=== PATIENT | male | born 1950 | race Caucasian/White ===

== ENCOUNTER 2020-02-22 08:42 | Outpatient (CLI) | payer MEDICARE, SELFPAY ==
[2020-02-22 09:43] LABS: Alanine Aminotransferase 25 U/L (4-50); Albumin Level 4.6 g/dL (3.5-5.1); Alkaline Phosphatase 82 U/L (38-126); Anion Gap 6 mmol/L (8-16); Aspartate Amino Transferase 29 U/L (17-59); Blood Urea Nitrogen 23 mg/dL (9-20); Calcium 9.1 mg/dL (8.4-10.2); Carbon Dioxide 28 mmol/L (22-30); Chloride 103 mmol/L (98-107); Cholesterol 150 mg/dL (0-200); Estimated Glomerular Filt Rate > 60; Glucose 103 mg/dL (75-110); HDL Direct 60 mg/dL; Potassium 3.8 mmol/L (3.4-5.0); Sodium 137 mmol/L (137-145); Triglycerides 43 mg/dL (<150)
[2020-02-22 09:53] LABS: LDL Cholesterol Direct 69 mg/dL
== END 2020-02-22 08:43 | disposition home or self-care (01) ==
PROVIDERS: PCP Emergency Medicine; Visit Provider Emergency Medicine
DX: E78.5 Hyperlipidemia, unspecified (principal)
CPT/HCPCS: 36415; 80053; 80061

== ENCOUNTER 2020-06-11 08:24 | Outpatient (CLI) | payer MEDICARE, SELFPAY ==
--- NOTE | ~2020-06-11 | CT_ITS ---
EXAMINATION: CT chest w con DATE: 06/11/2020 09:02 INDICATION: Ascending aortic aneurysm TECHNIQUE: Computed tomography (CT) of the chest was performed with 75 cc Omnipaque 350 intravenous c ontrast. The dose-length product was 187.14 mGy-cm. Automated exposure control and iterative reconstr uction technique were employed. COMPARISON: CT dated 06/27/2019 FINDINGS: Stable appearance to ascending aortic aneurysm measuring 4.2 cm at the sinus of Valsalva, a nd 4.7 cm and the mid ascending aorta. The aorta measures 3.1 cm in the mid descending thoracic aorta. There is minimal apical pleural thick ening/scarring. No endobronchial lesions. No suspicious pulmonary nodules. There is a left chest wall pacer with leads in the right atrium and right ventricle respectively. Moderate thoracic spondylosis . Mild chronic wedge shaped appearance to multiple mid thoracic vertebra. No acute osseous abnormalit y. No thoracic lymphadenopathy. IMPRESSION: 1. Stable ascending thoracic aortic aneurysm measuring 4.7 cm. Reviewed, dictated and finalized at location A. ER MANAGER
[2020-06-11 11:24] LABS: Estimated Glomerular Filt Rate > 60
== END 2020-06-11 08:25 | disposition home or self-care (01) ==
PROVIDERS: PCP Emergency Medicine; Visit Provider Internal Medicine Cardiovascular Disease
DX: I71.4 Abdominal aortic aneurysm, without rupture (principal); I71.1 Thoracic aortic aneurysm, ruptured; M47.814 Spondylosis without myelopathy or radiculopathy, thoracic region
CPT/HCPCS: 71260; Q9967

== ENCOUNTER 2020-08-28 08:36 | Outpatient (CLI) | payer MEDICARE, SELFPAY ==
[2020-08-28 09:02] LABS: Alanine Aminotransferase 29 U/L (4-50); Albumin Level 4.4 g/dL (3.5-5.1); Alkaline Phosphatase 69 U/L (38-126); Anion Gap 5 mmol/L (8-16); Aspartate Amino Transferase 33 U/L (17-59); Blood Urea Nitrogen 22 mg/dL (9-20); Calcium 9.4 mg/dL (8.4-10.2); Carbon Dioxide 31 mmol/L (22-30); Chloride 103 mmol/L (98-107); Cholesterol 149 mg/dL (0-200); Estimated Glomerular Filt Rate > 60; Glucose 96 mg/dL (75-110); HDL Direct 61 mg/dL; Sodium 139 mmol/L (137-145); Triglycerides 50 mg/dL (<150)
[2020-08-28 09:13] LABS: LDL Cholesterol Direct 69 mg/dL
[2020-08-28 09:33] LABS: Prostate Specific Antigen 0.5 ng/mL (< OR = 4.0)
== END 2020-08-28 08:37 | disposition home or self-care (01) ==
PROVIDERS: PCP Emergency Medicine; Visit Provider Emergency Medicine
DX: E78.5 Hyperlipidemia, unspecified (principal); Z12.5 Encounter for screening for malignant neoplasm of prostate
CPT/HCPCS: 36415; 80053; 80061; 84153; G0103

== ENCOUNTER 2021-03-04 06:40 | Outpatient (CLI) | payer MEDICARE, SELFPAY ==
[2021-03-04 07:48] LABS: Alanine Aminotransferase 28 U/L (4-50); Albumin Level 4.5 g/dL (3.5-5.1); Alkaline Phosphatase 76 U/L (38-126); Anion Gap 5 mmol/L (8-16); Aspartate Amino Transferase 32 U/L (17-59); Bilirubin,Total 0.5 mg/dL (0.2-1.3); Blood Urea Nitrogen 18 mg/dL (9-20); Calcium 9.7 mg/dL (8.4-10.2); Carbon Dioxide 30 mmol/L (22-30); Chloride 104 mmol/L (98-107); Cholesterol 160 mg/dL (0-200); Estimated Glomerular Filt Rate > 60; Glucose 115 mg/dL (65-110); HDL Direct 72 mg/dL; Potassium 4.3 mmol/L (3.4-5.0); Sodium 139 mmol/L (137-145); Triglycerides 51 mg/dL (<150)
[2021-03-04 08:00] LABS: LDL Cholesterol Direct 67 mg/dL
[2021-03-04 12:51] LABS: Vitamin D 25 Hydroxy 95.9 ng/mL
== END 2021-03-04 06:41 | disposition home or self-care (01) ==
PROVIDERS: PCP Emergency Medicine; Visit Provider Emergency Medicine
DX: E78.5 Hyperlipidemia, unspecified (principal); E55.9 Vitamin D deficiency, unspecified
CPT/HCPCS: 36415; 80053; 80061; 82306

== ENCOUNTER 2021-03-07 09:53 | Outpatient (CLI) | payer MEDICARE, SELFPAY ==
[2021-03-07 13:47] LABS: Hemoglobin A1C 5.4 % (<5.7)
== END 2021-03-07 09:54 | disposition home or self-care (01) ==
LOC: ANHLAB 09:58
PROVIDERS: PCP Emergency Medicine; Visit Provider Emergency Medicine
DX: R73.09 Other abnormal glucose (principal)
CPT/HCPCS: 36415; 83036

== ENCOUNTER 2021-06-27 07:57 | Outpatient (CLI) | payer MEDICARE, SELFPAY ==
--- NOTE | ~2021-06-27 | CT_ITS ---
EXAMINATION: CT diagnostic chest wo con EXAM DATE: 06/27/2021 08:23 INDICATION: Ascending aortic aneurysm. TECHNIQUE: Spiral CT of the chest without contrast. Axial, coronal and sagittal images of the chest were reviewed. Coronal maximum intensity pixel images of chest reviewed. The dose-length product ( DLP) for this examination was 160.10 mGy-cm. The exposure was tailored according to patient size (au to mA exposure control), and iterative reconstruction (ASIR) was used as additional dose reduction te chnique. Comparison is made to prior examination from 06/11/2020. FINDINGS: Ascending aorta measures 4.7 cm, stable. There are no pleural or pericardial effusions. Tracheobronchial tree is patent. There is no mediastinal, hilar or axillary lymphadenopathy. The re is no pneumothorax. Heart normal in size. There is moderate coronary arterial calcification, a rterial sclerosis. Dual lead pacemaker/AICD device. Upper abdomen is unremarkable. There is mild t o moderate thoracic spondylosis without osteoblastic or osteolytic lesions identified. IMPRESSION: Stable mildly aneurysmal ascending aorta at 4.7 cm. Reviewed, dictated and finalized at location A. IMS ADVOCATE CLERK/SPECIALIST
== END 2021-06-27 07:58 | disposition home or self-care (01) ==
LOC: ANHIMG 08:01
PROVIDERS: PCP Emergency Medicine; Visit Provider Internal Medicine Cardiovascular Disease
DX: I71.2 Thoracic aortic aneurysm, without rupture (principal)
CPT/HCPCS: 71250

== ENCOUNTER 2021-09-03 06:54 | Outpatient (CLI) | payer MEDICARE, SELFPAY ==
[2021-09-03 07:40] LABS: Alanine Aminotransferase 29 U/L (4-50); Alkaline Phosphatase 91 U/L (38-126); Anion Gap 4 mmol/L (8-16); Aspartate Amino Transferase 28 U/L (17-59); Bilirubin,Total 0.3 mg/dL (0.2-1.3); Blood Urea Nitrogen 24 mg/dL (9-20); Calcium 8.7 mg/dL (8.4-10.2); Carbon Dioxide 31 mmol/L (22-30); Chloride 106 mmol/L (98-107); Cholesterol 112 mg/dL (0-200); Estimated Glomerular Filt Rate > 60; Glucose 96 mg/dL (65-110); HDL Direct 52 mg/dL; Potassium 3.8 mmol/L (3.4-5.0); Sodium 141 mmol/L (137-145); Triglycerides 60 mg/dL (<150)
[2021-09-03 10:21] LABS: Hemoglobin A1C 5.2 % (<5.7)
[2021-09-03 11:59] LABS: Prostate Specific Antigen 0.4 ng/mL (< OR = 4.0)
[2021-09-03 13:39] LABS: LDL Cholesterol Direct 41 mg/dL
== END 2021-09-03 06:55 | disposition home or self-care (01) ==
PROVIDERS: PCP Emergency Medicine; Referring Provider Internal Medicine Cardiovascular Disease; Visit Provider Emergency Medicine
DX: Z12.5 Encounter for screening for malignant neoplasm of prostate (principal); R73.09 Other abnormal glucose; E78.5 Hyperlipidemia, unspecified; E78.00 Pure hypercholesterolemia, unspecified
CPT/HCPCS: 36415; 80053; 80061; 83036; 84153; G0103

== ENCOUNTER 2022-03-12 07:25 | Outpatient (CLI) | payer MEDICARE, SELFPAY ==
[2022-03-12 10:26] LABS: Alanine Aminotransferase 36 U/L (6-50); Albumin Level 4.2 g/dL (3.5-5.1); Alkaline Phosphatase 86 U/L (38-126); Anion Gap 9 mmol/L (8-16); Aspartate Amino Transferase 34 U/L (17-59); Bilirubin,Total 0.6 mg/dL (0.2-1.3); Blood Urea Nitrogen 18 mg/dL (9-20); Calcium 9.3 mg/dL (8.4-10.2); Carbon Dioxide 29 mmol/L (22-30); Chloride 101 mmol/L (98-107); Cholesterol 134 mg/dL (0-200); Estimated Glomerular Filt Rate > 60; Glucose 102 mg/dL (65-110); HDL Direct 59 mg/dL; Potassium 4.3 mmol/L (3.4-5.0); Sodium 139 mmol/L (137-145); Triglycerides 53 mg/dL (<150)
[2022-03-12 10:41] LABS: LDL Cholesterol Direct 58 mg/dL
== END 2022-03-12 07:26 | disposition home or self-care (01) ==
LOC: ANHLAB 07:27
PROVIDERS: PCP Emergency Medicine; Visit Provider Emergency Medicine
DX: E78.5 Hyperlipidemia, unspecified (principal)
CPT/HCPCS: 36415; 80053; 80061

== ENCOUNTER 2022-07-17 14:34 | Outpatient (CLI) | payer MEDICARE, SELFPAY ==
--- NOTE | ~2022-07-17 | CT_ITS ---
EXAMINATION:CT diagnostic chest wo con DATE: 07/17/2022 14:57 INDICATION: Ascending aortic aneurysm without rupture. TECHNIQUE: Computed tomography (CT) of the chest was performed without intravenous contrast. Automate d exposure control and iterative reconstruction technique were employed. The dose-length product (DLP ) was 157.63 mGy-cm. COMPARISON: Chest CT 06/27/2021 FINDINGS: There is mild scarring at the lung apices. There are small bilateral posterior diaphragmati c hernias containing fat. There is minimal atelectasis bilaterally. No pleural effusion. The heart si ze is normal. There are coronary artery calcifications. No pericardial effusion. There is a left ches t wall pacer with leads in the right atrium and right ventricle. The aorta measures 4.7 cm at the sin uses of Valsalva, 3.8 cm at the sinotubular junction, 4.7 cm in the mid ascending aorta, 3.4 cm at th e isthmus, and 3.2 cm in the mid descending aorta. There is severe thoracic spondylosis. There is mil d chronic anterior wedging of multiple vertebral bodies. IMPRESSION: 1. Stable ectasia of ascending aorta measuring 4.7 cm. Reviewed, dictated and finalized at location A. MANAGER
== END 2022-07-17 14:35 | disposition home or self-care (01) ==
PROVIDERS: PCP Emergency Medicine; Visit Provider Nurse Practitioner Adult Health
DX: I71.21 Aneurysm of the ascending aorta, without rupture (principal)
CPT/HCPCS: 71250

== ENCOUNTER 2022-09-01 00:51 | Day surgery (SDC) | payer MEDICARE, SELFPAY ==
[2022-08-31 14:21] VITALS: BMI 21.4
[2022-09-01 08:16] VITALS: BP 101/68; PULSE 52; RESP 12; TEMP 36.3; O2SAT 100; BMI 20.8
[2022-09-01 08:35] LABS: Basophils Absolute Auto 0.1 K/mm3 (0.0-0.1); Basophils Percent Auto 1.1 % (0.2-1.2); Eosinophils Absolute Auto 0.4 K/mm3 (0-0.3); Eosinophils Percent Auto 6.5 % (0-4.4); Hematocrit 43.2 % (42.0-52.0); Hemoglobin 14.2 g/dL (14.0-18.0); Immature Granulocyte Absolute 0.01 K/mm3 (0.00-0.031); Immature Granulocyte Percent A 0.2 % (0-0.5); Lymphocytes Absolute Auto 2.03 K/mm3 (0.9-3.2); Lymphocytes Percent Auto 31.6 % (18.3-44.2); Mean Corpuscular HGB Conc 32.9 g/dl (32-36); Mean Corpuscular Hemoglobin 29.1 pg (26-34); Mean Corpuscular Volume 88.5 fl (80-100); Mean Platelet Volume 11.7 fl (7.4-10.4); Monocytes Absolute Auto 0.5 K/mm3 (0.1-0.6); Monocytes Percent Auto 8.1 % (2.6-8.5); Neutrophils Absolute Auto 3.4 K/mm3 (1.3-6.7); Neutrophils Percent Auto 52.5 % (45.5-73.1); Platelet Count Result 210 k/mm3 (150-375); Red Blood Count 4.88 M/mm3 (4.6-6.20); Red Cell Distribution Width 13.2 % (11.5-14.5); White Blood Count 6.4 K/mm3 (4.5-10.0)
[2022-09-01 08:38] LABS: Anion Gap 7 mmol/L (8-16); Blood Urea Nitrogen 28 mg/dL (9-20); Calcium 9.3 mg/dL (8.4-10.2); Carbon Dioxide 28 mmol/L (22-30); Chloride 104 mmol/L (98-107); Estimated CRCL calculation 78 ml/min; Estimated Glomerular Filt Rate > 60; Glucose 91 mg/dL (65-110); Potassium 3.9 mmol/L (3.4-5.0); Sodium 139 mmol/L (137-145)
[2022-09-01 08:45] LABS: INR 1.1; Prothrombin Time 13.4 Seconds (11.1-14.7)
--- NOTE | 2022-09-01 09:14 | PM.IMHP ---
H&P: HPI History of Present Illness Date/Time: 09/01/22 09:14 Chief Complaint: Pacemaker pulse generator at elective replacement interval Narrative: 72-year-old male with implantation of a Medtronic dual-chamber pacemaker 10/19/2013 for symptomatic sinus node dysfunction. The pulse generator has reached [facility]. He also has a history of an ascending aortic aneurysm, [id number] aortic insufficiency and hyperlipidemia. The patient is feeling well today with no infections or fevers. Review of Systems Review of Systems: Feeling a little tired the last month or so, mild exertional fatigue, no shortness of breath, chest pain, fevers, edema, bleeding. Constitutional: Constitutional: Denies fever(s) Cardiovascular: Cardiovascular: Denies chest pain, Denies pedal edema, Denies lightheadedness and Denies dyspnea Respiratory: Respiratory: Denies chest congestion and Denies dyspnea Gastrointestinal: Gastrointestinal: Denies abdominal pain and Denies hematochezia Musculoskeletal: Musculoskeletal: Reports no additional musculoskeletal complaints Integumentary/Breasts: Skin/Breast: Reports system reviewed and no additional complaints, except as docu Neurologic: Reports system reviewed and no additional complaints, except as documented, Denies behavioral changes and Denies confusion Psychiatric: Psychiatric: Denies behavioral changes and Denies confusion PMFSH Past Medical History Medical History Aortic insufficiency Artificial pacemaker Ascending aortic aneurysm Hyperlipidemia Surgical History Surgical History H/O parathyroidectomy Family History Family History Mother Family history of malignant neoplasm, Onset Age: 83 Family history of heart disease in male family member before age 55 Father Family history of heart disease in male family member before age 55 Social History Social History Smoking status: Never smoker Second hand tobacco smoke exposure: No Smoking end date: 06/28/69 Alcohol intake: never Substance use: never Substance use type: does not use Living arrangements: alone Spiritual care concerns: No Meds Home Medications and Allergies Home Medications Medication Instructions Recorded Confirmed Type aspirin 81 mg tablet,delayed 81 mg PO DAILY 08/06/19 09/01/22 History release atorvastatin 20 mg tablet 40 mg PO DAILY 08/07/19 09/01/22 History metoprolol succinate 25 mg 25 mg PO DAILY 09/04/20 09/01/22 History tablet,extended release 24 hr sertraline 50 mg tablet (Zoloft) 50 mg PO DAILY #90 tabs 07/01/22 08/31/22 Rx alprazolam 0.5 mg tablet (Xanax) 0.5 mg PO BID PRN anxiety #30 tabs 07/18/22 09/01/22 Rx zolpidem 10 mg tablet (Ambien) 10 mg PO .QHS PRN sleep #30 tabs 07/31/22 09/01/22 Rx Allergies Allergy/AdvReac Type Severity Reaction Status Date / Time ether Allergy Unknown UNKNOWN Verified 09/01/22 08:11 Vital Signs Vital Signs - 24 hr 09/01/22 08:16 Temperature 97.4 F L Pulse Rate 52 L Respiratory Rate 12 Blood Pressure 101/68 Pulse Oximetry 100 Oxygen Delivery Room Air Exam Const: General: cooperative, healthy appearing and comfortable; No confusion Orientation/consciousness: oriented to person, patient oriented x3 and No confusion HENMT: Mouth: Yes moist mucous membranes Other: Dentition in good repair Eyes: EOM: EOMs intact bilaterally Neck: Neck: supple Thyroid: thyroid normal Resp: Effort & Inspection: normal respiratory effort Auscultation: clear to auscultation bilaterally Cardio: Rate: regular rate Rhythm: regular rhythm Heart sounds: no murmurs GI: Inspection: normal to inspection GI Palp: No abdominal tenderness Skin: General skin exam: normal color and no rashes or lesions noted Other: Pacemaker
--- NOTE | 2022-09-01 09:23 | WPDMODSED ---
Moderate Sedation Note-Pt Data Patient Data Diagnosis: Pacemaker at [facility] Present Complaint: History of sinus node dysfunction, status post Medtronic pacemaker 10/19/2013. Procedure to be performed/Plan: Conscious sedation Generator change Allergies Allergy/AdvReac Type Severity Reaction Status Date / Time ether Allergy Unknown UNKNOWN Verified 09/01/22 08:11 Home Medications Medication Instructions Recorded Confirmed Type aspirin 81 mg tablet,delayed 81 mg PO DAILY 08/06/19 09/01/22 History release atorvastatin 20 mg tablet 40 mg PO DAILY 08/07/19 09/01/22 History metoprolol succinate 25 mg 25 mg PO DAILY 09/04/20 09/01/22 History tablet,extended release 24 hr sertraline 50 mg tablet (Zoloft) 50 mg PO DAILY #90 tabs 07/01/22 08/31/22 Rx alprazolam 0.5 mg tablet (Xanax) 0.5 mg PO BID PRN anxiety #30 tabs 07/18/22 09/01/22 Rx zolpidem 10 mg tablet (Ambien) 10 mg PO .QHS PRN sleep #30 tabs 07/31/22 09/01/22 Rx Sedation/Anesthesia: No previous sedation/anesthesia problems (including family history). [facility] Past Medical History Medical History Aortic insufficiency Artificial pacemaker Ascending aortic aneurysm Hyperlipidemia Surgical History Surgical History H/O parathyroidectomy Family History Family History Mother Family history of malignant neoplasm, Onset Age: 83 Family history of heart disease in male family member before age 55 Father Family history of heart disease in male family member before age 55 Social History Social History Smoking status: Never smoker Second hand tobacco smoke exposure: No Smoking end date: 06/28/69 Alcohol intake: never Substance use: never Substance use type: does not use Living arrangements: alone Spiritual care concerns: No Mod Sed Physical Exam Physical Exam Pre Procedural Exam: Normal: Appearance, Eyes, Ears, Nose, Neck, Throat, Airway, Lungs, Heart Size, Heart Rate, Heart Rhythm, Neuro Exam, Abdomen, Extremities and Skin (Pacemaker site is well healed) Hours since solid foods: 12 Hours since liquid intake: 12 Mallampati Classification: class II Internal Medicine - PN: Obj Da Vital Signs Vital Signs: Vital Signs - 24 hr 09/01/22 08:16 Temperature 97.4 F L Pulse Rate 52 L Respiratory Rate 12 Blood Pressure 101/68 Pulse Oximetry 100 Oxygen Delivery Room Air Labs 09/01/22 08:17 09/01/22 08:17 Labs: Laboratory Results - last 24 hr 09/01/22 09/01/22 09/01/22 08:17 08:17 08:17 WBC 6.4 RBC 4.88 Hgb 14.2 Hct 43.2 MCV 88.5 MCH 29.1 MCHC 32.9 RDW 13.2 Plt Count 210 MPV 11.7 H Immature Gran % (Auto) 0.2 Neut % (Auto) 52.5 Lymph % (Auto) 31.6 [place] % (Auto) 8.1 Eos % (Auto) 6.5 H Baso % (Auto) 1.1 Lymph # (Auto) 2.03 [place] # (Auto) 0.5 Eos # (Auto) 0.4 H Baso # (Auto) 0.1 Abs Immat Gran (auto) 0.01 Absolute Neuts (auto) 3.4 Absolute Nucleated RBC 0.0 Nucleated RBC % 0.0 PT 13.4 INR 1.1 Sodium 139 Potassium 3.9 Chloride 104 Carbon Dioxide 28 Anion Gap 7 L BUN 28 H D Creatinine 0.70 Estim Creat Clear Calc 78 Estimated GFR > 60 Glucose 91 Calcium 9.3 ASA Classification/Sedation ASA Classification/Sedation ASA Class: III Emergent: No Risks: Risks, benefits and alternatives explained and patient/family accepted plan for sedation. Patient re-evaluated immediately prior to sedation. Reviewed risks of pacemaker generator change with patient. These include breathing problems, allergic reactions, bleeding, infection. In the unlikely event of needing a lead revision there are further complications similar to those that he had with the initial pacemaker implan
--- NOTE | 2022-09-01 10:47 | PM.OP ---
Procedure Note - Brief Procedure Note - Brief Date of procedure: 09/01/22 Pre-op diagnosis: jayce Generator at [facility] Procedure performed: conscious sedation Generator change Description of procedure: uneventful generator change Surgeon: Nan Contreras MD Complications: No immediate complications Condition: Stable Disposition: Observation Findings: initially thought to be pacer dependent did a very slow underlying sinus bradycardia.
--- NOTE | 2022-09-01 10:55 | P.OP_ITS ---
Procedure Note - Detailed Date of Procedure 09/03/22 Pre-op Diagnosis Pacemaker at [facility] Post-op Diagnosis Other (s/p generator change) Procedure Performed Conscious sedation Generator change Surgeon Nan Contreras MD Anesthesia Local ( with conscious sedation) Indications 72-year-old male with implantation of a Medtronic dual-chamber pacemaker 10/19/2013 for symptomatic sinus node dysfunction.? The pulse generator has reached [facility] and he is here for a generator change.? He also has a history of an ascending aortic aneurysm, [id number] aortic insufficiency and hyperlipidemia. Thought to be pacemaker dependent. Findings Patient has a very slow underlying sinus bradycardia. Description of Procedure PROCEDURE: Conscious sedation Generator change UNDERLYING RHYTHM: Very slow underlying sinus bradycardia CONSCIOUS SEDATION: Assessment: The patient has no history of anesthesia problems. The oropharynx is clear. The patient was deemed to be a good candidate for conscious sedation. The patient had continuous hemodynamic and oximetric monitoring during the procedure. Start time: 9:53 p.m. Completion time: 10:43 a.m. Total conscious sedation time: 50 minutes Medications: Versed 2 mg, fentanyl 100 mcg IV push Trained observer: Sheila Duffy RN Outcome: The patient tolerated the procedure well with no complications. PROCEDURE: After informed consent, the patient is brought to the fish hatchery laborer and the left prepectoral area was prepped and draped in usual fashion. The patient was given a prophylactic antibiotic intravenously with Ancef 1 g IV push. After conscious sedation as described above, the area was anesthetized with 1% lidocaine. A skin incision is made, below the original incision due to the orientation of the head of the pulse generator, with the Plasma Blade and carried down to the pacing capsule which was also incised. Hemostasis is obtained using the Plasma Blade. The lead/s was/were freed from the underlying capsule and inspected and were found to be intact. The pulse generator was delivered from the pocket. The lead/s was/were disconnected from the existing device and reconnected to the new device. A gentle tug could not remove it/the m. The device and lead/s was/were interrogated and found to be functioning appropriately. The area was copiously irrigated with antibiotic-containing solution. The device was covered with a TyRx antibiotic pouch and replaced in the pocket. The subcutaneous tissues were closed in a two-layer fashion with interrupted 2 0 Vicryl sutures and the skin was closed in a continuous fashion using 4 0 Vicryl. The area was cleansed, an Aquacel dressing applied. The patient tolerated the procedure well with no complications. Estimated blood loss was negligible. THRESHOLD INFORMATION: Atrial lead: p-wave sensing 2.1 volts, impedance 361 Ohms, threshold 0.5 volts at 0.4 milliseconds RV lead: R-wave sensing 7.3 mV, impedance 456 Ohms, threshold 0.5 volts at 0.4 milliseconds PROGRAMMED PARAMETERS: AIAIR <=> DDDR 60/130 Implants DEVICE INFORMATION: New pulse generator: Medtronic [place] XT MRI model [id number], serial [id number] [id number] Existing right atrial lead: Medtronic 5086 MRI for 5, SERIAL LFP [id number], implanted 10/24/2013 Existing right ventricular lead: Medtronic 5086 MRI 5 2, serial LFP [id number], implanted 10/24/2013
[2022-09-01 11:00] VITALS: BP 111/74; PULSE 61; RESP 16; TEMP 36.6; O2SAT 99
[2022-09-01 11:17] VITALS: BP 104/82; PULSE 61; RESP 16; O2SAT 99
--- NOTE | 2022-09-01 11:22 | SUR.PHASEII ---
spoke with son on the phone, who is en route to pick him up. went over wound check follow up appointment with son, prescription account supervisor, and no driving for 24 hrs. discharge instructions will be given to patient prior to release.
[2022-09-01 11:33] VITALS: BP 117/72; PULSE 60; RESP 16; O2SAT 99
--- NOTE | 2022-09-01 11:34 | SUR.PHASEII ---
iv d/c tip intact. patient education given on discharge instructions including antibiotic sent to pharmacy, finish all antibiotic, wound check, incision care, and ice therapy. patient is alert and all questions and concerns addressed. patient is able to walk around room with steady gait and get dressed. waiting on son to get here to drive him home.
--- NOTE | 2022-09-01 11:45 | SUR.PHASEII ---
taken out to son's vehicle
== END 2022-09-01 11:45 | disposition home or self-care (01) ==
PROVIDERS: PCP Emergency Medicine; Visit Provider Internal Medicine Cardiovascular Disease
PROC: 0JPT0PZ Removal of Cardiac Rhythm Related Device from Trunk Subcutaneous Tissue and Fascia, Open Approach (ICD-10-PCS; CPT 33228; principal; 2022-09-01 09:30)
DX: Z45.010 Encounter for checking and testing of cardiac pacemaker pulse generator [battery] (principal); E78.5 Hyperlipidemia, unspecified; I71.21 Aneurysm of the ascending aorta, without rupture; I35.1 Nonrheumatic aortic (valve) insufficiency; Z79.82 Long term (current) use of aspirin
CPT/HCPCS: 33228; 36415; 80048; 85025; 85610; C1785; J0690; J2250; J3010; J7040

== ENCOUNTER 2022-09-11 07:21 | Outpatient (CLI) | payer MEDICARE, SELFPAY ==
[2022-09-11 08:13] LABS: Alanine Aminotransferase 40 U/L (6-50); Albumin Level 4.7 g/dL (3.5-5.1); Alkaline Phosphatase 100 U/L (38-126); Anion Gap 5 mmol/L (8-16); Aspartate Amino Transferase 33 U/L (17-59); Bilirubin,Total 0.8 mg/dL (0.2-1.3); Blood Urea Nitrogen 17 mg/dL (9-20); Calcium 9.4 mg/dL (8.4-10.2); Carbon Dioxide 34 mmol/L (22-30); Chloride 100 mmol/L (98-107); Cholesterol 153 mg/dL (0-200); Estimated Glomerular Filt Rate > 60; Glucose 95 mg/dL (65-110); HDL Direct 58 mg/dL; Potassium 4.3 mmol/L (3.4-5.0); Sodium 139 mmol/L (137-145); Triglycerides 138 mg/dL (<150)
[2022-09-11 08:24] LABS: LDL Cholesterol Direct 60 mg/dL
== END 2022-09-11 07:22 | disposition home or self-care (01) ==
PROVIDERS: PCP Emergency Medicine; Visit Provider Emergency Medicine
DX: E78.5 Hyperlipidemia, unspecified (principal)
CPT/HCPCS: 36415; 80053; 80061

== ENCOUNTER 2023-03-18 09:17 | Outpatient (CLI) | payer MEDICARE, SELFPAY ==
[2023-03-18 08:18] LABS: Alanine Aminotransferase 56 U/L (6-50); Albumin Level 4.6 g/dL (3.5-5.1); Alkaline Phosphatase 75 U/L (38-126); Anion Gap 1 mmol/L (8-16); Aspartate Amino Transferase 43 U/L (17-59); Bilirubin,Total 0.8 mg/dL (0.2-1.3); Blood Urea Nitrogen 21 mg/dL (9-20); Calcium 9.5 mg/dL (8.4-10.2); Carbon Dioxide 37 mmol/L (22-30); Chloride 100 mmol/L (98-107); Cholesterol 158 mg/dL (0-200); Estimated Glomerular Filt Rate > 60; Glucose 97 mg/dL (65-110); HDL Direct 70 mg/dL; Potassium 4.1 mmol/L (3.4-5.0); Sodium 138 mmol/L (137-145); Triglycerides 69 mg/dL (<150)
[2023-03-18 08:29] LABS: LDL Cholesterol Direct 67 mg/dL
[2023-03-19 18:03] LABS: Prostate Specific Antigen 0.6 ng/mL (< OR = 4.0)
[2023-03-23 02:04] LABS: Vitamin D 1,25 (OH)2 Total 53 pg/mL (18-72); Vitamin D2 1,25 (OH)2 <8 pg/mL; Vitamin D3 1,25 (OH)2 53 pg/mL
== END 2023-03-18 09:18 | disposition home or self-care (01) ==
PROVIDERS: PCP Emergency Medicine; Visit Provider Emergency Medicine
DX: E78.5 Hyperlipidemia, unspecified (principal); Z12.5 Encounter for screening for malignant neoplasm of prostate; E55.9 Vitamin D deficiency, unspecified
CPT/HCPCS: 36415; 80053; 80061; 82652; 84153; G0103

== ENCOUNTER 2023-07-28 08:53 | Outpatient (CLI) | payer MEDICARE, SELFPAY ==
--- NOTE | ~2023-07-28 | CT_ITS ---
EXAMINATION: CT diagnostic chest wo con DATE: 07/28/2023 09:35 INDICATION: Ascending aortic aneurysm TECHNIQUE: Computed tomography (CT) of the chest was performed without intravenous contrast. Automate d exposure control and iterative reconstruction technique were employed. Exam dose: 184.53 mGy-cm to sal exam DLP. COMPARISON: 07/17/2022 CT chest FINDINGS: Normal heart size. Left-sided transvenous pacemaker device with right atrial and right vent ricular leads. Coronary artery calcifications. Aortic and great vessel calcifications. Stable 4.7 cm ascending aortic aneurysm. Mid aortic arch measures approximately 3.2 cm diameter. The descending thoracic aorta measures approx imately 3.1 cm diameter. Mild bilateral apical scarring. No pulmonary infiltrate or consolidation or pulmonary mass lesion. No hilar or mediastinal mass lesion or lymphadenopathy. Small bilateral foramen of [place] fat-containing hernias. Normal morphology of the adrenal glands. Prominent degenerative disc disease at C6-7. Moderately prominent degenerative disc disease and mild anterolisthesis at C7-T1. Chronic anterior wedging of some thoracic vertebral bodies, most prominent at T8. Multilevel degenera tive disease of the thoracic spine, most prominent at T8-9. No suspicious osteolytic or osteoblastic lesions. IMPRESSION: Stable up to 4.7 cm thoracic aortic aneurysm Reviewed, dictated and finalized at Location A. Reviewed, dictated and finalized at location B. ER OPERATOR
== END 2023-07-28 08:54 | disposition home or self-care (01) ==
PROVIDERS: PCP Emergency Medicine; Visit Provider Internal Medicine Cardiovascular Disease
DX: I71.21 Aneurysm of the ascending aorta, without rupture (principal)
CPT/HCPCS: 71250

== ENCOUNTER 2024-03-09 08:29 | Outpatient (CLI) | payer BC, SELFPAY ==
[2024-03-09 09:53] LABS: Alanine Aminotransferase 22 U/L (6-50); Albumin Level 4.3 g/dL (3.5-5.1); Alkaline Phosphatase 82 U/L (38-126); Anion Gap 7 mmol/L (4-12); Aspartate Amino Transferase 30 U/L (17-59); Bilirubin,Total 0.8 mg/dL (0.2-1.3); Blood Urea Nitrogen 21 mg/dL (9-20); Calcium 9.3 mg/dL (8.4-10.2); Carbon Dioxide 32 mmol/L (22-30); Chloride 100 mmol/L (98-107); Cholesterol 143 mg/dL (0-200); Estimated Glomerular Filt Rate > 60; Glucose 92 mg/dL (65-110); HDL Direct 69 mg/dL; Potassium 3.8 mmol/L (3.4-5.0); Sodium 139 mmol/L (137-145); Triglycerides 68 mg/dL (<150)
[2024-03-09 10:05] LABS: LDL Cholesterol Direct 56 mg/dL
[2024-03-09 10:26] LABS: Vitamin D 25 Hydroxy 44.1 ng/mL
== END 2024-03-09 08:30 | disposition home or self-care (01) ==
LOC: ANHLAB 08:33
PROVIDERS: PCP Emergency Medicine; Visit Provider Emergency Medicine
DX: E78.5 Hyperlipidemia, unspecified (principal); E55.9 Vitamin D deficiency, unspecified
CPT/HCPCS: 36415; 80053; 80061; 82306

== ENCOUNTER 2024-07-18 13:32 | Outpatient (CLI) | payer MEDICARE, SELFPAY ==
--- NOTE | ~2024-07-18 | CT_ITS ---
EXAMINATION: CT diagnostic chest wo con DATE: 07/18/2024 13:50 INDICATION: AAA/DIZZINESS TECHNIQUE: Computed tomography (CT) of the chest was performed without intravenous contrast. Addition al 3D reconstructions utilizing coronal maximum intensity projection (MIP) were performed. Automated exposure control and iterative reconstruction technique were employed. The dose-length product was 16 8.24 mGy-cm. COMPARISON: 07/28/2023 FINDINGS: Mild biapical pleural-parenchymal scarring. Tiny calcified left lower lobe nodule consistent with old granulomatous disease. No pneumonia, edema, pleural effusion or pneumothorax. Heart size normal. Ath erosclerotic coronary artery calcific location. No pericardial effusion. Dual-lead cardiac pacemaker with lead tips at the right atrium and apex of the right ventricle. Ascending thoracic aortic aneurys m measuring up to 4.8 x 4.8 cm in maximal diameter. This tapers to a normal diameter of 3.4 x 3.1 cm at the aortic isthmus. No pathologically enlarged thoracic lymphadenopathy. And visualized upper abdo men is unremarkable. Moderate to severe thoracic spondylosis. Chronic mild anterior wedging at T6-T8. IMPRESSION: 1. No significant change in a 4.8 cm ascending thoracic aortic aneurysm. Reviewed, dictated and finalized at location A. H INSPECTOR
--- NOTE | ~2024-07-18 | US_ITS ---
EXAMINATION: US carotid duplex BI DATE: 07/18/2024 14:03 INDICATION: Dizziness. TECHNIQUE: Grayscale, color Doppler, and pulsed Doppler images of the cervical carotid arteries were obtained. The degree of vessel stenosis is placed in one of the following categories: normal, <50%, 5 0-69%, >=70% but less than near-occlusion, near-occlusion, or total occlusion. Note that percent sten osis relative to normal distal artery lumen diameter is indirectly measured from velocity measurement s as described by Po, et al. Radiology 2003; 229:340-346. COMPARISON: None. FINDINGS: RIGHT: The right common carotid artery (CCA) peak systolic velocity (PSV) is 76 cm/s. The right internal car otid artery (ICA) PSV is 100 cm/s. The right ICA end-diastolic velocity (EDV) is 29 cm/s. The right I CA/CCA PSV ratio is 1.3. Grayscale and color Doppler images yield an estimate of <50% diameter reduct ion from plaque in the ICA. There is antegrade flow in the right vertebral artery. LEFT: The left CCA PSV is 80 cm/s. The left ICA PSV is 104 cm/s. The left ICA EDV is 31 cm/s. The left ICA/ CCA PSV ratio is 1.3. Grayscale and color Doppler images yield an estimate of <50% diameter reduction from plaque in the ICA. There is antegrade flow in the left vertebral artery. IMPRESSION: 1. <50% stenosis in the right internal carotid artery. 2. <50% stenosis in the left internal carotid artery. Reviewed, dictated and finalized at location B. ICAL RESEARCH NURSE
== END 2024-07-18 13:33 | disposition home or self-care (01) ==
PROVIDERS: PCP Emergency Medicine; Visit Provider Internal Medicine Cardiovascular Disease
DX: I71.21 Aneurysm of the ascending aorta, without rupture (principal); I65.23 Occlusion and stenosis of bilateral carotid arteries
CPT/HCPCS: 71250; 93880

== ENCOUNTER 2024-09-14 07:12 | Outpatient (CLI) | payer MEDICARE, SELFPAY ==
--- OUTSIDE RECORDS SUMMARY | 2024-09-14 07:15 | XMS_ITS | Clinical Summary ---
Author Organization [facility] Address [facility] [place] [address] Care Team Providers Care Personal Development Mentor Name Role Phone Dwayne Lopez MD Primary Care Provide r Allergies No known active allergies Medications ALPRAZolam (XANAX) 0.5 mg tablet take 1 tablet by oral route 3 times every day 0 0 11/27/2013 Active aspirin 81 mg tablet Take 1 tablet (81 mg total) by mouth daily Active atorvastatin (LIPITOR) 40 mg tablet TAKE 1 TABLET BY MOUTH EVERY DAY 90 tablet 2 03/07/2024 Active zolpidem (AMBIEN) 10 mg tablet Take 1 tablet (10 mg total) by mouth daily as needed 07/20/2024 Active Active Problems Problem Noted Date Diagnosed Date Abnormal computed tomography angiography (CTA) 0 08/08/2024 Dizziness 07/07/2024 Hypotension due to drugs 07/07/2023 Hypertriglyceridemia 06/09/2021 Chronic fatigue 06/09/2021 Nonrheumatic aortic (valve) insufficiency 2019 Ascending aortic aneurysm 05/15/2019 Pacemaker 05/15/2019 Overview (09/01/2022): Medtronic Abril Dual Pacemaker. Dx; CHB. DOI 09/01/2022-Uppstrom. Chronic leads 10/24/2013. Carelink remote monitoring. 09/01/22-Relay monitor ordered. jr Atypical chest pain 05/15/2019 Sinoatrial node dysfunction 04/28/2016 Overview (10/02/2016): Sinus node dysfunction Hypercholesterolemia 04/28/2016 Overview (10/02/2016): Hypercholesteremia Resolved Problems Problem Noted Date Diagnosed Date Resolved Date Visit for wound check 09/08/20222023 Hypercholesterolemia 05/15/2019 019 Aortic valve disorder 05/04/20182019 History of cardiac pacemaker in situ 04/28/2016 05/15/2019 Overview (11/24/2017): Medtronic Dual Pacemaker. Dx; SSS. DOI 10/24/2013. Carelink remote monitoring Q3 mo, office pacer checks Q1 yr. Hypercholesteremia 8 Encounters Date Type Department Care Team Description 08/24/2024 9:30 AM MARKETING SYSTEMS MANAGER Office Visit [facility] Cardiology [address] [place] [address] [address] [place] [phone] Deb Lion NP Fatigue, unspecified type (Primary Dx); Nonobstructive atherosclerosis of coronary artery; Status post coronary angiogram; Aneurysm of ascending aorta without rupture; Sinoatrial node dysfunction (HCC); Pacemaker [Z95.0] 08/24/2024 Telephone [place] [address] [place] [phone] Deb Lion NP 08/18/2024 10:30 AM MARKETING SYSTEMS MANAGER - 08/18/2024 12:00 PM MARKETING SYSTEMS MANAGER Surgery [facility] Cardiac Catheterization Lab [id number] [place] [id number] Riley Motley MD LEFT HEART CATHETERIZATION WITH CORONARY ANGIOGRAPHY AND WITH OR WITHOUT LEFT VENTRICULOGRAM [id number] 08/18/2024 7:58 AM MARKETING SYSTEMS MANAGER - 08/18/2024 1:12 PM MARKETING SYSTEMS MANAGER Hospital Encounter [facility] Cardiac Catheterization Lab [address] [place] [phone] Riley Motley MD Abnormal computed tomography angiography (CTA) Discharge Disposition: Discharge to home or self care 08/16/2024 Telephone [facility] Cardiology [address] [place] [address] [address] [place] [phone] Ana Rosa Broussard MD Prior Auth 08/08/2024 Telephone [facility] Cardiology [facility] [address] [place] [phone] Ana Rosa Broussard MD 08/07/2024 12:48 PM MARKETING SYSTEMS MANAGER - 08/07/2024 11:59 PM MARKETING SYSTEMS MANAGER Hospital Encounter [facility] [address] [place] [phone] Atypical chest pain Discharge Disposition: Discharge to home or self care 07/31/2024 9:15 AM MARKETING SYSTEMS MANAGER Ancillary Procedure [facility]iology [address] [place] [address] [address] [place] [phone] Nonrheumatic aortic (valve) insufficiency; Aneurysm of ascending aorta without rupture; Pacemaker; Chronic fatigue; Atypical chest pain; Dizziness 07/26/2024 8:45 AM MARKETING SYSTEMS MANAGER Ancillary Procedure [facility]iology [address] [facility] [address] [place] [phone] Pacemaker [Z95.0] (Primary Dx); SSS (sick sinus syndrome) (HCC); CHB (complete heart block) (HCC) 07/18/2024 Orders Only [facility] Information Management [address] [place] [phone] Ana Rosa Broussard MD 07/14/2024 Telephone [facility] Cardiology [address] [place] [address] [address] [place] [phone] Ana Rosa Broussard MD Prior Auth 07/07/2024 10:30 AM MARKETING SYSTEMS MANAGER Office Visit [facility] Cardiology [address] [place] [address] [address] [place] [phone] Ana Rosa Broussard MD Nonrheumatic aortic (valve) insufficiency (Primary Dx); Aneurysm of ascending aorta without rupture; Hypercholesterolemia; Pacemaker; Chronic fatigue; Atypical chest pain; Dizziness; Hypertriglyceridemia; Sinoatrial node dysfunction (HCC) from Last 3 Months Surgical History Surgery Date Site/Laterality Comments KNEE SURGERY X's 3 Left; X's 1 right CORNEAL TRANSPLANT Left ELBOW SURGERY tendon APPENDECTOMY EXPLORATORY LAPAROTOMY INSERT / REPLACE / REMOVE PACEMAKER PARATHYROIDECTOMY partial CARDIAC CATHETERIZATION 08/18/2024 N/A Procedure: LEFT HEART CATHETERIZATION WITH CORONARY ANGIOGRAPHY AND WITH OR WITHOUT LEFT VENTRICULOGRAM [id number]; Surgeon: Riley Motley MD; Location: CARDIAC DATA ENTRY OPERATOR; Service: Cardiovascular; Laterality: N/A; CARDIAC CATHETERIZATION 08/18/2024 N/A Procedure: Coronary Flow Velocity (CFR) / Instantaneous Flow Velocity (IFR), 1st Vessel; Surgeon: Riley Motley MD; Location: CARDIAC DATA ENTRY OPERATOR; Service: Cardiovascular; Laterality: N/A; Medical History Medical History Date Comments Hx Other Medical Parathyroidecto my; hyperparathyroidsim; Comments: ELU 12/03/2013 - Hypercholesteremia Abnormal computed tomography angiography (CTA) Family History Medical History Relation Name Comments Coronary artery disease Father cabg Father CABG Mother Late 60's or ea rly 70's Cancer Mother Cause of Coronary artery disease Mother Relation Name Status Comments Father Mother Social History Tobacco Use Types Packs/Day Years Used Date Smoking Tobacco: Former Smokeless Tobacco: Never Tobacco Cessation:Counseling Given: Not Answered Alcohol Use Standard Drinks/Week Comments No 0 (1 standard drink = 0.6 oz pur e alcohol) AUDIT-C Answer Date Recorded Frequency of Alcohol Consumption Not on file 08/18/2024 Q2: How many drinks containi ng alcohol do you have on a typical day when you are drinking? Patient does not drink Frequency of Binge Drinking Not on file 07/30 Personal Safety Answer Date Recorded Have you ever been in or are you currently in a harmful physical or emotional relationship or is someone making you feel afraid or unsafe? Denies 08/18/2024 Sex and Gender Information Value Date Recorded Sex Assigned at Not on file Legal Sex Male 3:16 AM MARKETING SYSTEMS MANAGER Gender Identity Not on file Sexual Orientation Not on file Obstetrics History Last Filed Vital Signs Vital Sign Reading Time Taken Comments Blood Pressure 108/66 08/24/2024 9:50 AM MARKETING SYSTEMS MANAGER Pulse 85 08/24/2024 9:50 AM MARKETING SYSTEMS MANAGER Temperature 36.9 C (98.4 F) 08/18/2024 8:21 AM MARKETING SYSTEMS MANAGER Respiratory Rate 18 08/18/2024 8:21 AM MARKETING SYSTEMS MANAGER Oxygen Saturation 97% 08/24/2024 9:50 AM MARKETING SYSTEMS MANAGER Inhaled Oxygen Concentration - - Weight 68.9 kg (152 lb) 08/24/2024 9:50 AM MARKETING SYSTEMS MANAGER Height 177.8 cm (5' 10 ) 08/24/2024 9:50 AM MARKETING SYSTEMS MANAGER Body Mass Index 21.81 08/24/2024 9:50 AM MARKETING SYSTEMS MANAGER Plan of Treatment Health Maintenance Due Date Last Done Comments Colon Cancer Screening-Colonoscopy 1950 Depression Screening 1950 Hepatitis C Screening 1950 DTaP/Tdap/Td Vaccine (1 - Tdap) 1962 Hepatitis B Screening 1969 Pneumococcal vaccine 65+ (1 of 1 - PCV) 2001 Zoster Vaccine (1 of 2) 2001 Abdominal Aortic Aneurysm (AAA) Screen 2016 Well Visit 65+ 2016 Influenza Vaccine (#1) 2024 06/29/2018, 2012 Fall Risk Assessment 08/18/2025 08/18/2024 Medical Devices Implanted Type Area Director Of Email Marketing Device Identifier Shelf Expiration Date Model / Serial / Lot Pacemaker-2013 Implanted:10/24 (Quantity not on file) Pacemaker Chest Medtronic [facility] REVO MRI / [id number] / Procedures Procedure Name Priority Date/Time Associated Diagnosis Comments CORONARY FLOW VELOCITY (CFR) / INSTATANEOUS FLOW VELOCITY (IFR), 1ST VESSEL Routine 08/18/2024 10:58 AM MARKETING SYSTEMS MANAGER Abnormal computed tomography angiography (CTA) LEFT HEART CATHETERIZATION WITH CORONARY ANGIOGRAPHY AND WITH AND WITHOUT LEFT VENTRICULOGRAM Routine 08/18/2024 10:58 AM MARKETING SYSTEMS MANAGER Abnormal computed tomography angiography (CTA) MODERATE SEDATION SAME MD KIDD ADDL 15 MIN [id number] 08/18/2024 10:00 AM MARKETING SYSTEMS MANAGER Abnormal computed tomography angiography (CTA) MODERATE SEDATION 08/18/2024 10:00 AM MARKETING SYSTEMS MANAGER Abnormal computed tomography angiography (CTA) EGFR Routine 08/18/2024 8:17 AM MARKETING SYSTEMS MANAGER BASIC METABOLIC PANEL Routine 08/18/2024 8:17 AM MARKETING SYSTEMS MANAGER CBC WITHOUT DIFFERENTIAL Routine 08/18/2024 8:[address] HEART MORPHOLOGY AND CORONARY ARTERIES W CONTRAST Schedule Routine, Read Routine (OP Routine) 08/07/2024 1:37 PM MARKETING SYSTEMS MANAGER Atypical chest pain POCT CREATININE - DEVICE Routine 08/07/2024 1:16 PM MARKETING SYSTEMS MANAGER TRANSTHORACIC ECHO (TTE) COMPLETE W DOPPLER/CF WO CONTRAST Routine 07/31/2024 9:26 AM MARKETING SYSTEMS MANAGER Nonrheumatic aortic (valve) insufficiency Aneurysm of ascending aorta without rupture Pacemaker Chronic fatigue Atypical chest pain Dizziness DEVICE CHECK - REMOTE Routine 07/26/2024 12:30 PM MARKETING SYSTEMS MANAGER SSS (sick sinus syndrome) (HCC) CHB (complete heart block) (HCC) SCAN - RADIOLOGY/IMAGING 07/18/2024 POCT LIPID PANEL Routine 07/07/2024 10:41 AM MARKETING SYSTEMS MANAGER Hypercholesterole pravin Hypertriglyceride pravin from Last 3 Months Results * LEFT HEART CATHETERIZATION WITH CORONARY ANGIOGRAPHY AND WITH AND WITHOUT LEFT VENTRICULOGRAM, CORONARY FLOW VELOCITY (CFR) / INSTATANEOUS FLOW VELOCITY (IFR), 1ST VESSEL (08/18/2024 10:58 AM MARKETING SYSTEMS MANAGER) Anatomical Region Laterality Modality X-Ray Angiograph y Narrative 08/18/2024 11:22 AM MARKETING SYSTEMS MANAGER CARDIAC CATHETERIZATION REPORT Alfonzo Amaya IP ENCOUNTER: [id number] Date of Procedure: 08/18/2024 BIRTHDATE: 1950 DRY PLACER MACHINE OPERATOR: Riley Motley MD REFERRING PHYSICIAN: Dr. Broussard PREPROCEDURE DIAGNOSES: Abnormal coronary CTA PROCEDURES PERFORMED: Moderate sedation that started at 1027 and ended at 1058 using 2mg of Versed and 100mcg of fentanyl. The registered nurse was Talon Tinoco. Selective left and right coronary angiogram. Left heart catheterization with measurement of LVEDP and gradient across the aortic valve. FINDINGS: 1. Left main: The aortic root at the level of the sinus of Valsalva is dilated. The distal left main coronary artery has 10-20% calcific stenosis.. 2. Left anterior descending: The LAD gives off 2 main diagonal branches. The 1st diagonal branch has an area of myocardial bridging. The ostial to proximal LAD has 20-30% calcific stenosis. The mid LAD has a calcific bifurcation stenosis involving the 2nd main diagonal branch and is estimated to be 70% stenosis (1, 1, 1). Beyond this stenosis both the diagonal and LAD branches are no more than 2.0 mm vessels. 3. Left circumflex: The left circumflex artery is a non-dominant vessel and the main marginal branches have diffuse 10-20% stenosis.. 4. Right coronary artery: Once again it is noted that the aortic root at the level of the sinus of Valsalva is dilated. The RCA is a dominant vessel and has diffuse calcific 20-30% stenosis. 5. Left ventricle: A. End-diastolic pressure 35 mmHg. B. LV gram deferred. C. No significant gradient across aortic valve on catheter pullback. 6. Opening aortic pressure 117/68 and closing aortic pressure 106/73 ACCESS: right radial artery COMPLICATIONS: None ESTIMATED BLOOD LOSS: 5 mL PROCEDURAL DESCRIPTION: Informed consent was obtained from patient. Patient was then brought into the vat house laborer and was draped and prepped in the usual manner. Moderate sedation was given and the right wrist was subcutaneously injected with 1% lidocaine. The right radial artery was accessed using a 6Fr sheath via a micropuncture needle and modified Seldinger technique. Selective left coronary angiogram was done using a JL4 catheter with the tip of the catheter placed in the left main coronary artery. Selective right coronary angiogram was done using JR4 catheter with the tip of the catheter placed in the right coronary artery. A pigtail catheter was advanced across the aortic valve into the left ventricle to obtain measurement of LVEDP and the gradient across aortic valve. After review of the multiple orthogonal angiograms performed, decision was made to proceed with physiologic assessment of the calcified bifurcation stenosis in the mid LAD involving the diagonal branch. As the vessels distal to the stenosis are no more than 2.0 mm vessels, it is reasonable both to believe the stenosis is not physiologically significant leading to the decision to make a physiological assessment with the IFR wire. A 6F EBU 4.0 guide catheter was used to engage the left main coronary artery. The IFR wire was zeroed outside of the body before being introduced into the proximal left main coronary artery where it was normalized. The wire was then negotiated down the LAD about 2 cm past the lesion where IFR spot was performed with a ratio of 0.92. Pullback to the proximal left main coronary artery was performed showing a ratio of 1.0 at the proximal left main coronary artery thus excluding any drift. TR band was used for closure. CONCLUSIONS Nonobstructive coronary artery disease PLAN Recommend medical therapy and aggressive risk factor modification Should his anginal symptoms become on acceptable despite maximally tolerated medical therapy and no surgeries warranted for his ascending aortic aneurysm, then can proceed with PCI us Riley Motley MD CV CARDIAC CATH PROCEDURES Final Result * eGFR (08/18/2024 8:17 AM MARKETING SYSTEMS MANAGER) eGFR >90 >=60 mL/min/1. 73 m2 Comment: Interpretive Data Reference Interval Normal >/= 90 mL/min/1.73m2 Mildly decreased* 60 - 89 mL/min/1.73m2 Mildly to moderately decreased 45 - 59 mL/min/1.73m2 Moderately to severely decreased 30 - 44 mL/min/1.73m2 Severely decreased 15 - 29 mL/min/1.73m2 Kidney Failure < 15 mL/min/1.73m2 *Relative to young adult level Estimated glomerular filtration rate is determined by the 2020 CKD-EPI equation recommended by the National Kidney Foundation (A Unifying Approach to GFR Estimation: Recommendations of the NKF-ASK Task Force on Reassessing the Inclusion of Race in Diagnosing Kidney Disease, JASN 202). The CKD-EPI equation should not be used for patients with unstable renal function and has not been validated in children and those over 70. Current interpretive data was last reviewed 2021. Blood 08/18/2024 8:17 AM MARKETING SYSTEMS MANAGER 08/18/2024 8:30 AM MARKETING SYSTEMS MANAGER us Riley Motley MD LAB BLOOD ORDERABLES Final Resul t [facility] [address] Department [place] [address] * CBC without differential (08/18/2024 8:17 AM MARKETING SYSTEMS MANAGER) Pathologist [facility] WBC 5.1 3.8 - 9.9 K/cumm Hgb 13.9 13.0 - 17.5 g/dL [facility] Hct 42.5 38.9 - 50.3 % [facility] Plt 201 150 - 400 K/cumm [facility] MPV 11.4 9.1 - 12.3 fL [facility] RBC 4.72 4.30 - 5.80 M/cumm [facility] MCV 90.0 81.3 - 96.4 fL [facility] MCH 29.4 27.1 - 33.3 pg [facility] MCHC 32.7 32.3 - 35.7 g/dL [facility] RDW CV 13.2 11.1 - 14.9 % [facility] RDW SD 43.2 35.7 - 48.1 fL [facility] NRBC abs 0.00 0.00 - 0.01 K/cumm [facility] Blood 08/18/2024 8:17 AM MARKETING SYSTEMS MANAGER 08/18/2024 8:30 AM MARKETING SYSTEMS MANAGER us Riley Motley MD LAB BLOOD ORDERABLES Final Resul t [facility] [address] Department [place] [address] * (ABNORMAL) Basic metabolic panel (08/18/2024 8:17 AM MARKETING SYSTEMS MANAGER) Sodium 141 135 - 145 mmol/L Potassium, pl 4.1 3.3 - 4.9 mmol/L [facility] Chloride 104 97 - 110 mmol/L [facility] CO2 27 22 - 32 mmol/L [facility] Anion gap 10 2 - 15 mmol/L [facility] BUN 14 6 - 25 mg/dL [facility] Creatinine 0.74(L) 0.80 - 1.30 mg/dL [facility] Glucose 97 70 - 199 mg/dL [facility] Comment: Interpretive Data Fasting glucose >/= 126 mg/dl is diagnostic for diabetes. Fasting is defined as no caloric intake for at least 8 hours. Fasting glucose between 100 mg/dl to 125 mg/dl is diagnostic of prediabetes. In a patient with classic symptoms of hyperglycemia or hyperglycemic crisis, a random glucose >/= 200 mg/dl is diagnostic for diabetes. In the absence of unequivocal hyperglycemia, results should be confirmed by repeat testing. The classification and Diagnosis of Diabetes Diabetes Care 202; 46: S19-S40. Current interpretive data was last revised 2022. Calcium 9.3 8.5 - 10.3 mg/dL [facility] Blood 08/18/2024 8:17 AM MARKETING SYSTEMS MANAGER 08/18/2024 8:30 AM MARKETING SYSTEMS MANAGER us Riley Motley MD LAB BLOOD ORDERABLES Final Resul t [facility] [address] Department [place] [address] * CTA Heart and Coronary Arteries W Morphology when Performed (08/07/2024 1:37 PM MARKETING SYSTEMS MANAGER) Anatomical Region Laterality Modality Chest N/A Computed Tomogra phy 08/07/2024 2:21 PM MARKETING SYSTEMS MANAGER Impressions 08/07/2024 2:52 PM MARKETING SYSTEMS MANAGER 1. Three vessel calcified atherosclerosis which may result in up to severe stenosis in the left main and distal left anterior descending arteries. Further evaluation with fractional flow reserve testing or catheterization is recommended. 2. Calcium score is 2064.5, which is above the 90th percentile. 3. Dilation of the tubular ascending aorta up to 46 mm. Dictated by: Wilner Dimas MD The radiology attending physician has personally reviewed this study, and had reviewed and/or edited this written report and agrees with it. Electronically signed by: Marina Aldrich M.D. Narrative 08/07/2024 2:52 PM MARKETING SYSTEMS MANAGER EXAMINATION: CORONARY CT ANGIOGRAM HISTORY: Chest pain/anginal equivalent. High CAD risk. TECHNIQUE: CT angiography of the coronary arteries was performed after the administration of 93 mL of Optiray 350. Images were also obtained precontrast for the purposes of calcium scoring. Prior to the examination, 0.8 mg nitroglycerin was administered sublingually. The patient's heart rate at the time of the examination was 61 beats per minute. Images were transferred to a 3D workstation for additional post-processing. FINDINGS: The coronary arteries are right system dominant. There is no anomalous coronary origin or course. No focal caliber change or irregularity to suggest coronary artery dissection. Right coronary system: There is calcified plaque in the proximal right coronary artery resulting in up to moderate stenosis. Left coronary system: There is calcified plaque in left main coronary artery just proximal to the bifurcation that results in at least 50% stenosis. There is diffuse calcification throughout the left anterior descending artery resulting in up to moderate stenosis proximally and possibly up to severe stenosis distally. There is calcified plaque in the proximal left circumflex artery resulting in up to moderate stenosis. The calculated calcium score is 2064.5. This is above the 90th percentile. Other findings: The ascending aorta is dilated. The sinuses of Valsalva measuring 46 mm x 42 mm x 39 mm. The sinotubular junction measuring 39 mm x 37 mm. The tubular ascending aorta measures up to 46 mm x 46 mm. There is a left subclavian approach pacemaker with right atrial and right ventricular leads. There are minimal aortic valve calcifications. The heart size is upper limits of normal. There is no pericardial effusion. The imaged portions of the lungs demonstrate no consolidation or suspicious nodules. The imaged portions of the upper abdomen are unremarkable. There are degenerative changes of the spine. Procedure Note Marina Aldrich MD - 08/07/2024 EXAMINATION: CORONARY CT ANGIOGRAM HISTORY: Chest pain/anginal equivalent. High CAD risk. TECHNIQUE: CT angiography of the coronary arteries was performed after the administration of 93 mL of Optiray 350. Images were also obtained precontrast for the purposes of calcium scoring. Prior to the examination, 0.8 mg nitroglycerin was administered sublingually. The patient's heart rate at the time of the examination was 61 beats per minute. Images were transferred to a 3D workstation for additional post-processing. FINDINGS: The coronary arteries are right system dominant. There is no anomalous coronary origin or course. No focal caliber change or irregularity to suggest coronary artery dissection. Right coronary system: There is calcified plaque in the proximal right coronary artery resulting in up to moderate stenosis. Left coronary system: There is calcified plaque in left main coronary artery just proximal to the bifurcation that results in at least 50% stenosis. There is diffuse calcification throughout the left anterior descending artery resulting in up to moderate stenosis proximally and possibly up to severe stenosis distally. There is calcified plaque in the proximal left circumflex artery resulting in up to moderate stenosis. The calculated calcium score is 2064.5. This is above the 90th percentile. Other findings: The ascending aorta is dilated. The sinuses of Valsalva measuring 46 mm x 42 mm x 39 mm. The sinotubular junction measuring 39 mm x 37 mm. The tubular ascending aorta measures up to 46 mm x 46 mm. There is a left subclavian approach pacemaker with right atrial and right ventricular leads. There are minimal aortic valve calcifications. The heart size is upper limits of normal. There is no pericardial effusion. The imaged portions of the lungs demonstrate no consolidation or suspicious nodules. The imaged portions of the upper abdomen are unremarkable. There are degenerative changes of the spine. IMPRESSION: 1. Three vessel calcified atherosclerosis which may result in up to severe stenosis in the left main and distal left anterior descending arteries. Further evaluation with fractional flow reserve testing or catheterization is recommended. 2. Calcium score is 2064.5, which is above the 90th percentile. 3. Dilation of the tubular ascending aorta up to 46 mm. Dictated by: Wilner Dimas MD The radiology attending physician has personally reviewed this study, and had reviewed and/or edited this written report and agrees with it. Electronically signed by: Marina Aldrich M.D. Ana Rosa Broussard MD IMG CT PROCEDURES Final R esult * POCT creatinine (08/07/2024 1:16 PM MARKETING SYSTEMS MANAGER) [facility] Creatinine POC 0.9 0.8 - 1.3 mg/dL Blood 08/07/2024 1:16 PM MARKETING SYSTEMS MANAGER 08/07/2024 1:16 PM MARKETING SYSTEMS MANAGER Dwayne Lopez MD LAB POCT ORDERABLES - DEVICE Final Result [facility] Department of Laboratories [place], [place] [id number] * TRANSTHORACIC ECHO (TTE) COMPLETE W DOPPLER/CF WO CONTRAST (07/31/2024 9:26 AM MARKETING SYSTEMS MANAGER) [facility] LV EF 65 % CONS SCIMAGE Anatomical Region Laterality Modality Ultrasound 07/31/2024 8:58 AM MARKETING SYSTEMS MANAGER Narrative 07/31/2024 2:32 PM MARKETING SYSTEMS MANAGER [facility] Medical Group Cardiology [address], [place] [address] [address] [facility] [address], [place] [address] P:[phone] P:[phone] Echocardiographic Report Patient Name: ALFONZO AMAYA A : 1950 Study Date: 07/31/2024 8:58:44 AM Gender: M Tech: Ref Provider: ANA ROSA BROUSSARD Height(Cm): 178 BSA: 1.83 Weight(Kg): 68 Heart Rate: 95 BP: 108 / 60 Quality: Good Order Provider: ANA ROSA BROUSSARD PROCEDURES: Echocardiographic Report: Transthoracic echocardiogram with complete 2D, M-Mode, and color Doppler examination. With Strain Analysis. INDICATIONS: Atypical Chest Pain, Dizziness, Fatigue, I35.1 Nonrheumatic aortic (valve) insufficiency, I71.21 Aneurysm of the ascending aorta, without rupture, and Z95.0 Presence of cardiac pacemaker. MEASUREMENTS: 2D/MM Value Range Doppler Value Range EF Mod BP 67 % [ 52 - 72 ] AV Mean PG 4 mmHg EF Teich MM 69 % [ 52 - 72 ] AV Peak Noe 1.49 m/s [ 1.00 - 1.70 ] Estimated EF 65 % AV Peak PG 9 mmHg LVIDd 2D 4.03 cm [ 4.20 - 5.80 ] AV VTI 27.88 cm LVIDd MM 5.42 cm [ 4.20 - 5.80 ] LVOT Peak Noe 1.28 m/s [ 0.70 - 1.10 ] LVIDs 2D 2.37 cm [ 2.50 - 4.00 ] LVOT VTI 26.48 cm LVIDs MM 3.32 cm [ 2.50 - 4.00 ] MV E Peak Noe 0.68 m/s [ 0.60 - 1.30 ] LVPWd MM 0.84 cm [ 0.60 - 1.00 ] MV A Peak Noe 0.80 m/s [ 1.00 - 1.20 ] IVSd 2D 1.15 cm [ 0.60 - 1.00 ] MV Decel Time 235 msec [ 104 - 258 ] IVSd MM 0.72 cm [ 0.60 - 1.00 ] PV Peak Noe 0.99 m/s [ 0.40 - 0.80 ] LA Dimension MM 3.44 cm [ 3.00 - 4.00 ] TR Peak Noe 2.11 m/s [ 1.00 - 2.80 ] AoR Diam MM 4.54 cm [ 3.10 - 3.70 ] TR Peak PG 18 mmHg LA Volume Index 24 cc/m2 [ 16 - 34 ] RVSP 26.00 mmHg [ 10.00 - 36.00 ] ACS MM 1.75 cm [ 1.50 - 2.60 ] Lateral E` 0.08 m/s [ 0.10 - 0.15 ] E` 0.06 m/s E/E` 9 2D/MM Value Range Doppler Value Range - FINDINGS: Interpretation Site: Exam was interpreted at [facility]. Left Ventricle: Normal left ventricular size. Normal left ventricular wall thickness. Normal global left ventricular systolic function. Impaired diastolic relaxation Grade I. Ejection fraction is measured at 67 %. Ejection Fraction is visually estimated to be 65 %. Global Longitudinal Strain is -20 %. Right Ventricle: Normal right ventricular size. Left Atrium: The left atrium is normal in size. Right Atrium: The right atrium is normal in size. Atrial Septum: Normal atrial septum. Mitral Valve: Normal appearance of the mitral valve. Trivial regurgitation of the mitral valve. Aortic Valve: Normal appearance of the aortic valve. Mild aortic valve regurgitation. Tricuspid Valve: Estimated peak RVSP is 26 mmHg. Pulmonic Valve: Normal appearance of the pulmonic valve. Pericardium: Normal pericardium with no significant pericardial effusion. Aorta: Ascending aorta is mildly dilated. Ascending Aorta 4.4 cm. IVC: Normal size and normal respiratory collapse consistent with normal right atrial pressure (<5 mmHg). Pulmonary Artery: Normal pulmonary artery size. CONCLUSIONS: Normal left ventricular size. Normal left ventricular wall thickness. Normal global left ventricular systolic function. Impaired diastolic relaxation Grade I. Ejection fraction is measured at 67 %. Ejection Fraction is visually estimated to be 65 %. Global Longitudinal Strain is -20 %. Normal appearance of the aortic valve. Mild aortic valve regurgitation. Ascending aorta is mildly dilated. Ascending Aorta 4.4 cm( no change compared with 2021). Electronically Signed By: Dwayne Carrasco MD, [facility] 07/31/2024 2:31:13 PM MARKETING SYSTEMS MANAGER Procedure Note Dwayne Carrasco MD - 07/31/2024 [facility] Medical Group Cardiology [address] [facility] [address], [place] [address] [address] [facility] [address], [place] [address] P:[phone] P:[phone] Echocardiographic Report Patient Name: ALFONZO AMAYA A : 1950 Study Date: 07/31/2024 8:58:44 AM Gender: M Tech: Ref Provider: ANA ROSA BROUSSARD Height(Cm): 178 BSA: 1.83 Weight(Kg): 68 Heart Rate: 95 BP: 108 / 60 Quality: Good Order Provider: ANA ROSA BROUSSARD PROCEDURES: Echocardiographic Report: Transthoracic echocardiogram with complete 2D, M-Mode, and color Dopplerexamination. With Strain Analysis. INDICATIONS: Atypical Chest Pain, Dizziness, Fatigue, I35.1 Nonrheumatic aortic (valve)insufficiency, I71.21 Aneurysm of the ascending aorta, without rupture, and Z95.0Presence of cardiac pacemaker. MEASUREMENTS: 2D/MM Value Range Doppler ValueRange EF Mod BP 67 % [ 52 - 72 ] AV Mean PG 4mmHg EF Teich MM 69 % [ 52 - 72 ] AV Peak Noe 1.49m/s [ 1.00 - 1.70 ] Estimated EF 65 % AV Peak PG 9mmHg LVIDd 2D 4.03 cm [ 4.20 - 5.80 ] AV VTI 27.88cm LVIDd MM 5.42 cm [ 4.20 - 5.80 ] LVOT Peak Noe 1.28m/s [ 0.70 - 1.10 ] LVIDs 2D 2.37 cm [ 2.50 - 4.00 ] LVOT VTI 26.48cm LVIDs MM 3.32 cm [ 2.50 - 4.00 ] MV E Peak Noe 0.68m/s [ 0.60 - 1.30 ] LVPWd MM 0.84 cm [ 0.60 - 1.00 ] MV A Peak Noe 0.80m/s [ 1.00 - 1.20 ] IVSd 2D 1.15 cm [ 0.60 - 1.00 ] MV Decel Time 235msec [ 104 - 258 ] IVSd MM 0.72 cm [ 0.60 - 1.00 ] PV Peak Noe 0.99m/s [ 0.40 - 0.80 ] LA Dimension MM 3.44 cm [ 3.00 - 4.00 ] TR Peak Noe 2.11m/s [ 1.00 - 2.80 ] AoR Diam MM 4.54 cm [ 3.10 - 3.70 ] TR Peak PG 18mmHg LA Volume Index 24 cc/m2 [ 16 - 34 ] RVSP 26.00mmHg [ 10.00 - 36.00 ] ACS MM 1.75 cm [ 1.50 - 2.60 ] Lateral E` 0.08m/s [ 0.10 - 0.15 ] E` 0.06 m/s E/E` 9 2D/MM Value Range Doppler ValueRange - FINDINGS: Interpretation Site: Exam was interpreted at [facility]. Left Ventricle: Normal left ventricular size. Normal left ventricular wall thickness.Normal global left ventricular systolic function. Impaired diastolic relaxation Grade I.Ejection fraction is measured at 67 %. Ejection Fraction is visually estimated to be 65 %.Global Longitudinal Strain is -20 %. Right Ventricle: Normal right ventricular size. Left Atrium: The left atrium is normal in size. Right Atrium: The right atrium is normal in size. Atrial Septum: Normal atrial septum. Mitral Valve: Normal appearance of the mitral valve. Trivial regurgitation of the mitralvalve. Aortic Valve: Normal appearance of the aortic valve. Mild aortic valve regurgitation. Tricuspid Valve: Estimated peak RVSP is 26 mmHg. Pulmonic Valve: Normal appearance of the pulmonic valve. Pericardium: Normal pericardium with no significant pericardial effusion. Aorta: Ascending aorta is mildly dilated. Ascending Aorta 4.4 cm. IVC: Normal size and normal respiratory collapse consistent with normal rightatrial pressure (<5 mmHg). Pulmonary Artery: Normal pulmonary artery size. CONCLUSIONS: Normal left ventricular size. Normal left ventricular wall thickness.Normal global left ventricular systolic function. Impaired diastolic relaxation Grade I.Ejection fraction is measured at 67 %. Ejection Fraction is visually estimated to be 65 %.Global Longitudinal Strain is -20 %. Normal appearance of the aortic valve. Mild aortic valve regurgitation. Ascending aorta is mildly dilated. Ascending Aorta 4.4 cm( no changecompared with 2021). Electronically Signed By: Dwayne Carrasco MD, [facility] 07/31/2024 2:31:13 PM MARKETING SYSTEMS MANAGER Ana Rosa Broussard MD CV ECHO PROCEDURES Final Result * DEVICE CHECK - REMOTE (07/26/2024 12:30 PM MARKETING SYSTEMS MANAGER) Anatomical Region Laterality Modality Other Narrative 08/17/2024 12:45 PM MARKETING SYSTEMS MANAGER Medtronic [place] Dual Pacemaker. Dx; CHB. [facility] Chronic leads 10/24/2013. Carelink remote monitoring. Routine AAI<>DDD Pacemaker Remote. Transmission attached. Battery status-3.03V, 11.3 years remaining to JAYCE. Stable lead impedances, pacing and sensing thresholds. Presenting rhythm: AP-VS. AP-100%, ALL SOURCE INTELLIGENCE TECHNICIAN-<0.1 %. No AT/AF episodes recorded. No Ventricular high rate episodes noted. Medication: ASA 81 mg, Lipitor. Follow up: office pacemaker 12/13/2024. Carelink remote f/u 11/01/2024. Radha Dailey RN Ana Rosa Broussard MD CV CARDIAC SERVICES [facility] Final Result * SCAN - RADIOLOGY/IMAGING (07/18/2024) Anatomical Region Laterality Modality Other Ana Rosa Broussard MD Edited Re sult - Final * POCT lipid panel (07/07/2024 10:41 AM MARKETING SYSTEMS MANAGER) Cholesterol, POC 146 mg/dL HDL, POC 80 mg/dL Triglycerides, POC 64 mg/dL LDL Cholesterol POC 54 mg/dL Chol/HDL Ratio, POC 0.7 Non-HDL Cholesterol, POC 67 mg/dL Cholesterol Total, POC 146 mg/dL Capillary blood 07/07/2024 1 0:41 AM MARKETING SYSTEMS MANAGER Ana Rosa Broussard MD POINT OF CARE TEST ORDERA BLES Final Result from Last 3 Months Insurance ANTHEM MEDICARE HMO PPO ANTHEM MEDICARE HMO PPO Care Teams Personal Development Mentor Relationship Specialty Start Date End Date Dwayne Lopez MD [address] [place] [address] PCP - General Emergency Medicine 12/21/18
--- OUTSIDE RECORDS SUMMARY | 2024-09-14 07:15 | XMS_ITS | Referral Summary ---
Author Organization [facility] Address [address] [place] [address] Care Team Providers Care Electronic News Gathering Editor Name Role Phone Dwayne Lopez MD Primary Care Provide r Encounters Date Type Department Care Team Description 08/24/2024 Telephone [facility] Cardiology [address] [place] [phone] Deb Lion NP 08/24/2024 9:30 AM LASERIST Office Visit [facility] Cardiology [address] [facility] [address] [place] [address] Deb Lion NP Fatigue, unspecified type (Primary Dx); Nonobstructive atherosclerosis of coronary artery; Status post coronary angiogram; Aneurysm of ascending aorta without rupture; Sinoatrial node dysfunction (HCC); Pacemaker [Z95.0] 08/18/2024 10:30 AM LASERIST - 08/18/2024 12:00 PM LASERIST Surgery [facility] Cardiac Catheterization Lab [address] [place] [id number] Riley Motley MD LEFT HEART CATHETERIZATION WITH CORONARY ANGIOGRAPHY AND WITH OR WITHOUT LEFT VENTRICULOGRAM [id number] 08/18/2024 7:58 AM LASERIST - 08/18/2024 1:12 PM LASERIST Hospital Encounter [facility] Cardiac Catheterization Lab [address] [place] [id number] Riley Motley MD Abnormal computed tomography angiography (CTA) Discharge Disposition: Discharge to home or self care 08/16/2024 Telephone [facility] Cardiology [address] [facility] [address] [place] [phone] Ana Rosa Broussard MD Prior Auth 08/08/2024 Telephone [facility] Cardiology [address] [place] [address] [place] [phone] Ana Rosa Broussard MD 08/07/2024 12:48 PM LASERIST - 08/07/2024 11:59 PM LASERIST Hospital Encounter [facility] Radiology [facility] [address] [place] [phone] Atypical chest pain Discharge Disposition: Discharge to home or self care 07/31/2024 9:15 AM LASERIST Ancillary Procedure [facility] Cardiology [address] [place] [address] [place] [phone] Nonrheumatic aortic (valve) insufficiency; Aneurysm of ascending aorta without rupture; Pacemaker; Chronic fatigue; Atypical chest pain; Dizziness 07/26/2024 8:45 AM LASERIST Ancillary Procedure [facility] Cardiology [address] [facility] [address] [place] [phone] Pacemaker [Z95.0] (Primary Dx); SSS (sick sinus syndrome) (HCC); CHB (complete heart block) (HCC) 07/18/2024 Orders Only [facility] Health Information Management [address] [place] [address] Ana Rosa Broussard MD 07/14/2024 Telephone [facility] Cardiology [address] [place] [address] [place] [phone] Ana Rosa Broussard MD Prior Auth 07/07/2024 10:30 AM LASERIST Office Visit [facility] Cardiology [address] [place] [address] [place] [phone] Ana Rosa Broussard MD Nonrheumatic aortic (valve) insufficiency (Primary Dx); Aneurysm of ascending aorta without rupture; Hypercholesterolemia; Pacemaker; Chronic fatigue; Atypical chest pain; Dizziness; Hypertriglyceridemia; Sinoatrial node dysfunction (HCC) from Last 3 Months Allergies No known active allergies Medications ALPRAZolam [...] office pacer checks Q1 yr. Hypercholesteremia 8 Social History Tobacco Use Types Packs/Day Years [...] on file Legal Sex Male 3:16 AM LASERIST Gender Identity Not on file Sexual Orientation Not on file Last Filed Vital Signs Vital Sign Reading Time Taken Comments Blood Pressure 108/66 08/24/2024 9:50 AM LASERIST Pulse 85 08/24/2024 9:50 AM LASERIST Temperature 36.9 C (98.4 F) 08/18/2024 8:21 AM LASERIST Respiratory Rate 18 08/18/2024 8:21 AM LASERIST Oxygen Saturation 97% 08/24/2024 9:50 AM LASERIST Inhaled Oxygen Concentration - - Weight 68.9 kg (152 lb) 08/24/2024 9:50 AM LASERIST Height 177.8 cm (5' 10 ) 08/24/2024 9:50 AM LASERIST Body Mass Index 21.81 08/24/2024 9:50 AM LASERIST Plan of Treatment Not on file Medical Devices Implanted Type Area Audiometrist Device Identifier Shelf Expiration Date Model / Serial / Lot Pacemaker-2013 Implanted:10/24 (Quantity not on file) Pacemaker Chest Medtronic SSS REVO MRI / [id number] / Procedures Procedure Name Priority Date/Time Associated Diagnosis Comments CORONARY FLOW VELOCITY (CFR) / INSTATANEOUS FLOW VELOCITY (IFR), 1ST VESSEL Routine 08/18/2024 10:58 AM LASERIST Abnormal computed tomography angiography (CTA) LEFT HEART CATHETERIZATION WITH CORONARY ANGIOGRAPHY AND WITH AND WITHOUT LEFT VENTRICULOGRAM Routine 08/18/2024 10:58 AM LASERIST Abnormal computed tomography angiography (CTA) MODERATE SEDATION SAME MD BERNABE DALY 15 MIN [id number] 08/18/2024 10:00 AM LASERIST Abnormal computed tomography angiography (CTA) MODERATE SEDATION 08/18/2024 10:00 AM LASERIST Abnormal computed tomography angiography (CTA) EGFR Routine 08/18/2024 8:17 AM LASERIST BASIC METABOLIC PANEL Routine 08/18/2024 8:17 AM LASERIST CBC WITHOUT DIFFERENTIAL Routine 08/18/2024 8:[address] HEART MORPHOLOGY AND CORONARY ARTERIES W CONTRAST Schedule Routine, Read Routine (OP Routine) 08/07/2024 1:37 PM LASERIST Atypical chest pain POCT CREATININE - DEVICE Routine 08/07/2024 1:16 PM LASERIST TRANSTHORACIC ECHO (TTE) COMPLETE W DOPPLER/CF WO CONTRAST Routine 07/31/2024 9:26 AM LASERIST Nonrheumatic aortic (valve) insufficiency Aneurysm of ascending aorta without rupture Pacemaker Chronic fatigue Atypical chest pain Dizziness DEVICE CHECK - REMOTE Routine 07/26/2024 12:30 PM LASERIST SSS (sick sinus syndrome) (HCC) CHB (complete heart block) (HCC) SCAN - RADIOLOGY/IMAGING 07/18/2024 POCT LIPID PANEL Routine 07/07/2024 10:41 AM LASERIST Hypercholesterole pravin Hypertriglyceride pravin from Last 3 Months Results * LEFT HEART CATHETERIZATION WITH CORONARY ANGIOGRAPHY AND WITH AND WITHOUT LEFT VENTRICULOGRAM, CORONARY FLOW VELOCITY (CFR) / INSTATANEOUS FLOW VELOCITY (IFR), 1ST VESSEL (08/18/2024 10:58 AM LASERIST) Anatomical Region Laterality Modality X-Ray Angiograph y Narrative 08/18/2024 11:22 AM LASERIST CARDIAC CATHETERIZATION REPORT Alfonzo Amaya IP ENCOUNTER: [id number] Date of Procedure: 08/18/2024 BIRTHDATE: 1950 SOLUTION DEVELOPER: Riley Motley MD REFERRING PHYSICIAN: Dr. Broussard [...] patient. Patient was then brought into the labor delivery rn and was draped and prepped in the [...] Final Result * eGFR (08/18/2024 8:17 AM LASERIST) eGFR >90 >=60 mL/min/1. 73 m2 Comment: [...] last reviewed 2021. Blood 08/18/2024 8:17 AM LASERIST 08/18/2024 8:30 AM LASERIST us Riley Motley MD LAB BLOOD ORDERABLES Final Resul t Performing Organization Address [facility] Co de Phone Number [facility] [address] Department of Laboratories [place], [place] [id number] * CBC without differential (08/18/2024 8:17 AM LASERIST) WBC 5.1 3.8 - 9.9 K/cumm Hgb 13.9 13.0 - 17.5 g/dL [facility] Hct 42.5 38.9 - 50.3 % [facility] Plt 201 150 - 400 K/cumm [facility] MPV 11.4 9.1 - 12.3 fL [facility] RBC 4.72 4.30 - 5.80 M/cumm [facility] MCV 90.0 81.3 - 96.4 fL [facility] MCH 29.4 27.1 - 33.[address] [facility] MCHC 32.7 32.3 - 35.7 g/dL [facility] RDW CV 13.2 11.1 - 14.9 % [facility] RDW SD 43.2 35.7 - 48.1 fL [facility] NRBC abs 0.00 0.00 - 0.01 K/cumm [facility] Blood 08/18/2024 8:17 AM LASERIST 08/18/2024 8:30 AM LASERIST us Riley Motley MD LAB BLOOD ORDERABLES Final Resul t Performing Organization Address [facility] de Phone Number [facility] [address] Department of Laboratories [place], [place] [phone] * (ABNORMAL) Basic metabolic panel (08/18/2024 8:17 AM LASERIST) Sodium 141 135 - 145 mmol/L Potassium, pl 4.1 3.3 - 4.9 mmol/L [facility] Chloride 104 97 - 110 mmol/L [facility] CH CO2 27 22 - 32 mmol/L [facility] CH Anion gap 10 2 - 15 mmol/L [facility] CH BUN 14 6 - 25 mg/dL [facility] Creatinine 0.74(L) 0.80 - 1.30 mg/dL [facility] Glucose 97 70 - 199 mg/dL [facility] Comment: Interpretive Data Fasting glucose >/= 126 [...] mg/dL [facility] Blood 08/18/2024 8:17 AM LASERIST 08/18/2024 8:30 AM LASERIST us Riley Motley MD LAB BLOOD ORDERABLES Final Resul t [facility] [address] [place] [address] * CTA Heart and Coronary Arteries W Morphology when Performed (08/07/2024 1:37 PM LASERIST) Anatomical Region Laterality Modality Chest N/A Computed Tomogra phy 08/07/2024 2:21 PM LASERIST Impressions 08/07/2024 2:52 PM LASERIST 1. Three vessel calcified atherosclerosis which may [...] Marina Aldrich M.D. Narrative 08/07/2024 2:52 PM LASERIST EXAMINATION: CORONARY CT ANGIOGRAM HISTORY: Chest pain/anginal [...] it. Electronically signed by: Marina Aldrich M.D. us Ana Rosa Broussard MD IMG CT PROCEDURES Final R esult * POCT creatinine (08/07/2024 1:16 PM LASERIST) Creatinine POC 0.9 0.8 - 1.3 mg/dL Blood 08/07/2024 1:16 PM LASERIST 08/07/2024 1:16 PM LASERIST us Dwayne Lopez MD LAB POCT ORDERABLES - DEVICE Final Result [facility] [place] [address] * TRANSTHORACIC ECHO (TTE) COMPLETE W DOPPLER/CF WO CONTRAST (07/31/2024 9:26 AM LASERIST) LV EF 65 % CONS SCIMAGE Anatomical Region Laterality Modality Ultrasound 07/31/2024 8:58 AM LASERIST Narrative 07/31/2024 2:32 PM LASERIST [facility] Medical Group Cardiology [address] [facility] [address], [place] [address] [address] [facility] [address], [place] [address] P:[phone] P:[phone] Echocardiographic Report Patient Name: ALFONZO AMAYA A : 1950 Study Date: 07/31/2024 8:58:44 AM Gender: M Tech: SW Ref Provider: ANA ROSA BROUSSARD Height(Cm): 178 [...] FINDINGS: Interpretation Site: Exam was interpreted at [facility]. Left Ventricle: Normal left ventricular size. Normal [...] 2021). Electronically Signed By: Dwayne Carrasco MD, [facility] 07/31/2024 2:31:13 PM LASERIST Procedure Note Dwayne Carrasco MD - 07/31/2024 [facility] Medical Group Cardiology [address] [facility] [address], [place] [address] [address] [facility] [address], [place] [address] P:[phone] P:[phone] Echocardiographic Report Patient Name: ALFONZO AMAYA A [...] FINDINGS: Interpretation Site: Exam was interpreted at [facility] [place]. Left Ventricle: Normal left ventricular size. Normal [...] 2021). Electronically Signed By: Dwayne Carrasco MD, [facility] 07/31/2024 2:31:13 PM LASERIST Ana Rosa Broussard MD CV ECHO PROCEDURES Final Result * DEVICE CHECK - REMOTE (07/26/2024 12:30 PM LASERIST) Anatomical Region Laterality Modality Other Narrative 08/17/2024 12:45 PM LASERIST Medtronic [place] Dual Pacemaker. Dx; CHB. DOI [facility]/01/2022-[facility]. Chronic leads 10/24/2013. Carelink remote monitoring. Routine AAI<>DDD Pacemaker Remote. Transmission attached. Battery status-3.03V, 11.3 years remaining to JAYCE. Stable lead impedances, pacing and sensing thresholds. Presenting rhythm: AP-VS. AP-100%, HEAD INSPECTOR AND CENTER MARKER-<0.1 %. No AT/AF episodes recorded. No Ventricular high rate episodes noted. Medication: ASA 81 mg, Lipitor. Follow up: office pacemaker 12/13/2024. Carelink remote f/u 11/01/2024. Radha Dailey, RN Ana Rosa Broussard MD CV CARDIAC SERVICES PROCE DURES Final Result * SCAN - RADIOLOGY/IMAGING (07/18/2024) Anatomical Region Laterality Modality Other Ana Rosa Broussard MD Edited Re sult - Final * POCT lipid panel (07/07/2024 10:41 AM LASERIST) Cholesterol, POC 146 mg/dL HDL, POC 80 mg/dL Triglycerides, POC 64 mg/dL LDL Cholesterol POC 54 mg/dL Chol/HDL Ratio, POC 0.7 Non-HDL Cholesterol, POC 67 mg/dL Cholesterol Total, POC 146 mg/dL Capillary blood 07/07/2024 1 0:41 AM LASERIST Ana Rosa Broussard MD POINT OF CARE TEST ORDERA BLES Final Result from Last 3 Months Insurance [employer]M MEDICARE HMO PPO [employer] MEDICARE HMO PPO Care Teams Electronic News Gathering Editor Relationship Specialty Start Date End Date Dwayne Lopez MD [address] [place], [place] [phone] PCP - General Emergency Medicine 12/21/18
--- OUTSIDE RECORDS SUMMARY | 2024-09-14 07:15 | XMS_ITS | Clinical Summary ---
Author Organization [facility] Address [address] [place] [address] Care Team Providers Care Relocation Associate Name Role Phone Papa Mon MD Primary Care Provider Source Comments [facility],non-owned Affiliates and Associated Physician Practices is amultiple site organization consisting of ambulatory clinics and hospital sitesin [place], [place], [place] and [place]. This disclosure is being madepursuant to the Care Everywhere program and may not contain all information available regarding this patient. Last updated 18.[facility] Family History Medical History Relation Name Comments Heart Disease Father Mental Illness Father Status: Decea sed Cancer Mother Status: d Heart Disease Mother Relation Name Status Comments Father Mother Social History Tobacco Use Types Packs/Day Years Used Date Smoking Tobacco: Never Alcohol Use Standard Drinks/Week Comments No 0 (1 standard drink = 0.6 oz pur e alcohol) Sex and Gender Information Value Date Recorded Sex Assigned at Not on file Gender Identity Not on file Sexual Orientation Not on file Last Filed Vital Signs Vital Sign Reading Time Taken Comments Blood Pressure 99/65 04/26/2013 9:21 AM CDT Pulse - - Temperature 36.6 C (97.9 F) 04/26/2013 9:21 AM CDT Respiratory Rate - - Oxygen Saturation - - Inhaled Oxygen Concentration - - Weight 77.1 kg (170 lb) 04/26/2013 9:21 AM CDT Height 177.8 cm (5' 10 ) 04/26/2013 9:21 AM CDT Body Mass Index 24.39 04/26/2013 9:21 AM CDT Plan of Treatment Health Maintenance Due Date Last Done Comments COLOGUARD (AGES 45-75) - COL ON CA SCREENING 1950 COLON MONITORING 1950 COLONOSCOPY - COLON CA SCREENING 1950 CT COLONOGRAPHY - COLON CA SCREENING 1950 Colorectal Cancer Screening 1950 FIT - COLON CA SCREENING 1950 FLEX SIG - COLON CA SCREENING 1950 LIPID TESTING 1950 HEPATITIS C SCREENING 07/30/1969 DTAP/TDAP/TD VACCINES (1 - Tdap) 1970 PNEUMOCOCCAL VACCINE 50+ (1 of 1 - PCV) 2001 ZOSTER VACCINE (1 of 2) 2001 COVID-19 VACCINE (1 - 2023-2 5 season) 2024 INFLUENZA VACCINE (#1) 2024 DEPRESSION SCREENING 06/28/2024 Respiratory Syncytial Virus (RSV) Vaccine Pt: or over 60 yrs (1 - 1-dose 75+ series) 2026 HEPATITIS B VACCINE Aged Out No longe r eligible based on patient's age to complete this topic HIB VACCINE Aged Out No longer eligi ble based on patient's age to complete this topic HPV VACCINE Aged Out No longer eligi ble based on patient's age to complete this topic MENINGOCOCCAL (Group B) VACC INE SHARED DECISION-MAKING Aged Out No longer eligibl e based on patient's age to complete this topic MENINGOCOCCAL GROUPS A/C/Y/W VACCINE Aged Out No longer eligible b ased on patient's age to complete this topic Care Teams Relocation Associate Relationship Specialty Start Date End Date Papa Mon MD [address] [place] [id number] PCP - General 04/14/13
--- OUTSIDE RECORDS SUMMARY | 2024-09-14 07:15 | XMS_ITS | Encounter Summary ---
Author Organization [facility] Address [address] [address] Care Team Providers Care Fulling Mill Operator Name Role Phone Papa Mon MD Primary Care Provider [phone] Dwayne Lopez MD Primary Care Provide r Encounter Details Date Type Department Care Team (Late st Contact Info) Description 11/04/2016 Orders Only [facility] ProviderOrlin MD [address] [place] [address] Social History Tobacco Use Types Packs/Day Years Used Date Smoking Tobacco: Former Alcohol Use Standard Drinks/Week Comments No 0 (1 standard drink = 0.6 oz pur e alcohol) Sex and Gender Information Value Date Recorded Sex Assigned at Not on file Legal Sex Male 3:16 AM CRANE OPERATOR Gender Identity Not on file Sexual Orientation Not on file documented as of this encounter Plan of Treatment Not on file documented as of this encounter Procedures Procedure Name Priority Date/Time Associated Diagnosis Comments CARDIOLOGY REPORT 11/04/2016 documented in this encounter Results * CARDIOLOGY REPORT (11/04/2016) Anatomical Region Laterality Modality Other Narrative 11/04/2016 Ordered by an unspecified provider. Historical Provider CV CARDIAC SERVICES HECTOR ROSE Final Result documented in this encounter Visit Diagnoses Not on filedocumented in this encounter Care Teams Fulling Mill Operator Relationship Specialty Start Date End Date Papa Mon MD [address] INTERNAL MEDICINE [place], [place] [id number] PCP - General 11/27/13 12/20/18 Dwayne Lopez MD [address] [place] [address] PCP - General Emergency Medicine 12/21/18 documented as of this encounter
--- OUTSIDE RECORDS SUMMARY | 2024-09-14 07:15 | XMS_ITS | Encounter Summary ---
Author Organization [facility] Address [address] [address] Care Team Providers Care Shotgun Shell Reprinting Unit Operator Name Role Phone Papa Mon MD Primary Care Provider [phone] Dwayne Lopez MD Primary Care Provide r Encounter Details Date Type Department Care Team (Late st Contact Info) Description 08/05/2016 Orders Only [facility] ProviderOrlin MD [address] [place] [address] Social History Tobacco Use Types Packs/Day Years Used Date Smoking Tobacco: Former Alcohol Use Standard Drinks/Week Comments No 0 (1 standard drink = 0.6 oz pur e alcohol) Sex and Gender Information Value Date Recorded Sex Assigned at Not on file 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 Historical Provider CV CARDIAC SERVICES HECTOR ROSE Final Result documented in this encounter Visit Diagnoses Not on filedocumented in this encounter Care Teams Shotgun Shell Reprinting Unit Operator Relationship Specialty Start Date End Date Papa Mon MD [address] INTERNAL MEDICINE [place], [place] [id number] PCP - General 11/27/13 12/20/18 Dwayne Lopez MD [address] [place] [address] PCP - General Emergency Medicine 12/21/18 documented as of this encounter
--- OUTSIDE RECORDS SUMMARY | 2024-09-14 07:15 | XMS_ITS | Continuity of Care Document ---
Author Organization [facility] Address [address] [place] [address] [place] [address] Phone Care Team Providers Care Public Relations Assistant Name Role Phone Mitchel Pérez MD, FACS Unavailable Unavailab le Allergies, Adverse Reactions, Alerts Substance Reaction Status Criticality No Known allergies Medications Medication Instructions Dosage Effective Dates (start - stop) Status Comments Xanax 0.5 mg Tab take 1 tablet (0.5MG ) by ORAL route 3 times every day 0.5 MG - Active Ambien 10 mg Tab take 1 tablet (10MG) by ORAL route every day at bedtime - Active Procedures Procedure Date Refractive Evaluation Advance Directives Directive Yes / No Effective Date File Name Resuscitation Not Answered N/A N/A Life Support Not Answered N/A N/A Intubation Not Answered N/A N/A Antibiotics Not Answered N/A N/A IV Fluid Support Not Answered N/A N/A Tube Feed Not Answered N/A N/A Other Directive N/A N/A WARNING:The information contained in this section is historical and is provided for information only and does not constitute a legal document or any assurance that the information is still accurate. Please verify the information with the hamilton of the legal document before using it for clinical purposes. Encounters Encounter Description Practice Location Reason(s) For Visit Diagnoses Date Provider Providers Copied on Encounter [facility], [address] [place] [address] [address] [place], [place], [id number], [place] tel:[phone] SEC [facility] [place] decreased vision (chief complaint) ASTIGMATISM NOS [address]on[address] [place] [address], [address], [place], [place], [id number], [place]. tel:[phone] Referring Provider: Gen Sheets OD, [address] [facility], [place], [address]. tel:[phone] Family History Family Member Type Diagnosis Age At Onset No Information Payers Payer name Insurance type Covered alliance party ID Authoriza tion(s) No Information Social History Type Description Quantity Date Captured Comments Alcohol Use Details No Caffeine Use Details 2 cups per day Tobacco Use Status No Information Smoking Status No Information Sex Male Chief Complaint And Reason For Visit From encounter dated '04/15/2011 09:45'. decreased vision (chief complaint) Reason For Referral Reason For Referral No Information History Of Present Illness Encounter Date Complaint History Of Prese nt Illness No Information Functional Status Date Functional Assessmen t No Information Instructions Date Instruction Additional Infor mation Astigmatism, OUS/P P K OS- small diameter graft 7mm, K cone to periph skirt of graft.Pt complains of anisometropia - Pt understands astigmatism OU, Older style PK -refractive surgery not rec at this time. Rec trying CTL's first. Collagen crosslinking discussed rec waiting until available. Rec seeing [facility] for CTL fit with larger diameter scleral CTL's OS. Pt may want CTL for OD to assist with balancemonitorletter dictated to Dr. Sheets Related to Astigmatism - to [facility], for CTL Related to Ast igmatism Assessments Type Assessment Date No Information Patient Care Teams Name Effective Dates (start - stop) Status Members No Information
[2024-09-19 09:03] LABS: Testosterone Free 60.4 pg/mL (30.0-135.0); Testosterone Total 683 ng/dL (250-1100)
== END 2024-09-14 07:13 | disposition home or self-care (01) ==
PROVIDERS: PCP Emergency Medicine; Visit Provider Emergency Medicine
DX: E07.9 Disorder of thyroid, unspecified (principal); R79.89 Other specified abnormal findings of blood chemistry
CPT/HCPCS: 36415; 84402; 84403; 84443

== ENCOUNTER 2024-09-19 07:05 | Outpatient (CLI) | payer MEDICARE, SELFPAY ==
--- OUTSIDE RECORDS SUMMARY | 2024-09-19 07:08 | XMS_ITS | Clinical Summary ---
Author Organization [facility] [employer] Address [address] [place] [address] Care Team Providers Care Oil Well Directional Surveyor Name Role Phone Papa Mon MD Primary Care Provider [phone] Source Comments [facility],non-owned Affiliates and Associated Physician Practices is amultiple site organization consisting of ambulatory clinics and hospital sitesin [place], [place], [place] and [place]. This disclosure is being madepursuant to the Care Everywhere program and may not contain all information available regarding this patient. Last updated 18.[facility] Family History Medical History Relation Name Comments [...] age to complete this topic Care Teams Oil Well Directional Surveyor Relationship Specialty Start Date End Date Papa Mon MD [address] [place] [phone] PCP - General 04/14/13
--- OUTSIDE RECORDS SUMMARY | 2024-09-19 07:08 | XMS_ITS | Referral Summary ---
Author Organization [facility] Address [address] [place] [address] Care Team Providers Care Wood Heel Finisher Name Role Phone Dwayne Lopez MD Primary Care Provide r Encounters Date Type Department Care Team Description 08/24/2024 Telephone [facility] [address] [place] [phone] Deb Lion NP 08/24/2024 9:30 AM MERCERIZING RANGE CONTROLLER Office Visit [facility] [address] [facility] [place] [address] Deb Lion NP Fatigue, unspecified type (Primary Dx); Nonobstructive atherosclerosis of coronary artery; Status post coronary angiogram; Aneurysm of ascending aorta without rupture; Sinoatrial node dysfunction (HCC); Pacemaker [Z95.0] 08/18/2024 10:30 AM MERCERIZING RANGE CONTROLLER - 08/18/2024 12:00 PM MERCERIZING RANGE CONTROLLER Surgery [facility] Cardiac Catheterization Lab [address] [place] [address] Riley Motley MD LEFT HEART CATHETERIZATION WITH CORONARY ANGIOGRAPHY AND WITH OR WITHOUT LEFT VENTRICULOGRAM [id number] 08/18/2024 7:58 AM MERCERIZING RANGE CONTROLLER - 08/18/2024 1:12 PM MERCERIZING RANGE CONTROLLER Hospital Encounter [facility] Cardiac Catheterization Lab [address] [place] [address] Riley Motley MD Abnormal computed tomography angiography (CTA) Discharge Disposition: Discharge to home or self care 08/16/2024 Telephone [facility] [address] [address] [place] [phone] Ana Rosa Broussard MD Prior Auth 08/08/2024 Telephone [facility] [address] [place] [address] [place] [phone] Ana Rosa Broussard MD 08/07/2024 12:48 PM MERCERIZING RANGE CONTROLLER - 08/07/2024 11:59 PM MERCERIZING RANGE CONTROLLER Hospital Encounter [facility] [address] [place] [address] Atypical chest pain Discharge Disposition: Discharge to home or self care 07/31/2024 9:15 AM MERCERIZING RANGE CONTROLLER Ancillary Procedure [facility] [address] [place] [address] [place] [phone] Nonrheumatic aortic (valve) insufficiency; Aneurysm of ascending aorta without rupture; Pacemaker; Chronic fatigue; Atypical chest pain; Dizziness 07/26/2024 8:45 AM MERCERIZING RANGE CONTROLLER Ancillary Procedure [facility] [address] [place] [phone] Pacemaker [Z95.0] (Primary Dx); SSS (sick sinus syndrome) (HCC); CHB (complete heart block) (HCC) 07/18/2024 Orders Only [facility] Health Information Management [address] [place] [address] Ana Rosa Broussard MD 07/14/2024 Telephone [facility] [address] [place] [address] [place] [phone] Ana Rosa Broussard MD Prior Auth 07/07/2024 10:30 AM MERCERIZING RANGE CONTROLLER Office Visit [facility] [address] [place] [address] [place] [phone] Ana Rosa Broussard MD Nonrheumatic aortic (valve) [...] on file Legal Sex Male 3:16 AM MERCERIZING RANGE CONTROLLER Gender Identity Not on file Sexual Orientation Not on file Last Filed Vital Signs Vital Sign Reading Time Taken Comments Blood Pressure 108/66 08/24/2024 9:50 AM MERCERIZING RANGE CONTROLLER Pulse 85 08/24/2024 9:50 AM MERCERIZING RANGE CONTROLLER Temperature 36.9 C (98.4 F) 08/18/2024 8:21 AM MERCERIZING RANGE CONTROLLER Respiratory Rate 18 08/18/2024 8:21 AM MERCERIZING RANGE CONTROLLER Oxygen Saturation 97% 08/24/2024 9:50 AM MERCERIZING RANGE CONTROLLER Inhaled Oxygen Concentration - - Weight 68.9 kg (152 lb) 08/24/2024 9:50 AM MERCERIZING RANGE CONTROLLER Height 177.8 cm (5' 10 ) 08/24/2024 9:50 AM MERCERIZING RANGE CONTROLLER Body Mass Index 21.81 08/24/2024 9:50 AM MERCERIZING RANGE CONTROLLER Plan of Treatment Not on file Medical Devices Implanted Type Area Seam Sewer Device Identifier Shelf Expiration Date Model / Serial / Lot Pacemaker-2013 Implanted:10/24 (Quantity not on file) Pacemaker Chest Medtronic SSS REVO MRI / [id number] / Procedures Procedure Name Priority Date/Time Associated Diagnosis Comments CORONARY FLOW VELOCITY (CFR) / INSTATANEOUS FLOW VELOCITY (IFR), 1ST VESSEL Routine 08/18/2024 10:58 AM MERCERIZING RANGE CONTROLLER Abnormal computed tomography angiography (CTA) LEFT HEART CATHETERIZATION WITH CORONARY ANGIOGRAPHY AND WITH AND WITHOUT LEFT VENTRICULOGRAM Routine 08/18/2024 10:58 AM MERCERIZING RANGE CONTROLLER Abnormal computed tomography angiography (CTA) MODERATE SEDATION SAME MD BERNABE DALY 15 MIN [id number] 08/18/2024 10:00 AM MERCERIZING RANGE CONTROLLER Abnormal computed tomography angiography (CTA) MODERATE SEDATION 08/18/2024 10:00 AM MERCERIZING RANGE CONTROLLER Abnormal computed tomography angiography (CTA) EGFR Routine 08/18/2024 8:17 AM MERCERIZING RANGE CONTROLLER BASIC METABOLIC PANEL Routine 08/18/2024 8:17 AM MERCERIZING RANGE CONTROLLER CBC WITHOUT DIFFERENTIAL Routine 08/18/2024 8:[address] HEART MORPHOLOGY AND CORONARY ARTERIES W CONTRAST Schedule Routine, Read Routine (OP Routine) 08/07/2024 1:37 PM MERCERIZING RANGE CONTROLLER Atypical chest pain POCT CREATININE - DEVICE Routine 08/07/2024 1:16 PM MERCERIZING RANGE CONTROLLER TRANSTHORACIC ECHO (TTE) COMPLETE W DOPPLER/CF WO CONTRAST Routine 07/31/2024 9:26 AM MERCERIZING RANGE CONTROLLER Nonrheumatic aortic (valve) insufficiency Aneurysm of ascending aorta without rupture Pacemaker Chronic fatigue Atypical chest pain Dizziness DEVICE CHECK - REMOTE Routine 07/26/2024 12:30 PM MERCERIZING RANGE CONTROLLER SSS (sick sinus syndrome) (HCC) CHB (complete heart block) (HCC) SCAN - RADIOLOGY/IMAGING 07/18/2024 POCT LIPID PANEL Routine 07/07/2024 10:41 AM MERCERIZING RANGE CONTROLLER Hypercholesterole pravin Hypertriglyceride pravin from Last 3 Months Results * LEFT HEART CATHETERIZATION WITH CORONARY ANGIOGRAPHY AND WITH AND WITHOUT LEFT VENTRICULOGRAM, CORONARY FLOW VELOCITY (CFR) / INSTATANEOUS FLOW VELOCITY (IFR), 1ST VESSEL (08/18/2024 10:58 AM MERCERIZING RANGE CONTROLLER) Anatomical Region Laterality Modality X-Ray Angiograph y Narrative 08/18/2024 11:22 AM MERCERIZING RANGE CONTROLLER CARDIAC CATHETERIZATION REPORT Alfonzo Amaya IP ENCOUNTER: [id number] Date of Procedure: 08/18/2024 BIRTHDATE: 1950 TERRAPIN FISHER: Riley Motley MD REFERRING PHYSICIAN: Dr. Broussard [...] patient. Patient was then brought into the microbiology laboratory manager and was draped and prepped in the [...] Final Result * eGFR (08/18/2024 8:17 AM MERCERIZING RANGE CONTROLLER) eGFR >90 >=60 mL/min/1. 73 m2 Comment: [...] last reviewed 2021. Blood 08/18/2024 8:17 AM MERCERIZING RANGE CONTROLLER 08/18/2024 8:30 AM MERCERIZING RANGE CONTROLLER us Riley Motley MD LAB BLOOD ORDERABLES Final Resul t Performing Organization Address [facility] Co de Phone Number [facility] [address] Department of Laboratories [place], [place] [id number] * CBC without differential (08/18/2024 8:17 AM MERCERIZING RANGE CONTROLLER) WBC 5.1 3.8 - 9.9 K/cumm Hgb 13.9 13.0 - 17.5 g/dL [facility] Hct 42.5 38.9 - 50.3 % [facility] Plt 201 150 - 400 K/cumm [facility] CH MPV 11.4 9.1 - 12.3 fL [facility] RBC 4.72 4.30 - 5.80 M/cumm [facility] CH MCV 90.0 81.3 - 96.4 fL [facility] CH MCH 29.4 27.1 - 33.3 pg [facility] MCHC 32.7 32.3 - 35.7 g/dL [facility] CH RDW CV 13.2 11.1 - 14.9 % [facility] CH RDW SD 43.2 35.7 - 48.1 fL [facility] NRBC abs 0.00 0.00 - 0.01 K/cumm [facility] Blood 08/18/2024 8:17 AM MERCERIZING RANGE CONTROLLER 08/18/2024 8:30 AM MERCERIZING RANGE CONTROLLER us Riley Motley MD LAB BLOOD ORDERABLES Final Resul t Performing Organization Address [facility] de Phone Number [facility] [address] Department of Laboratories [place], [place] [phone] * (ABNORMAL) Basic metabolic panel (08/18/2024 8:17 AM MERCERIZING RANGE CONTROLLER) Sodium 141 135 - 145 mmol/L Potassium, [...] mg/dL [facility] VAUGHN Blood 08/18/2024 8:17 AM MERCERIZING RANGE CONTROLLER 08/18/2024 8:30 AM MERCERIZING RANGE CONTROLLER us Riley Motley MD LAB BLOOD ORDERABLES Final Resul t MARY[facility] [address] Department [place] [address] * CTA Heart and Coronary Arteries W Morphology when Performed (08/07/2024 1:37 PM MERCERIZING RANGE CONTROLLER) Anatomical Region Laterality Modality Chest N/A Computed Tomogra phy 08/07/2024 2:21 PM MERCERIZING RANGE CONTROLLER Impressions 08/07/2024 2:52 PM MERCERIZING RANGE CONTROLLER 1. Three vessel calcified atherosclerosis which may [...] Marina Aldrich M.D. Narrative 08/07/2024 2:52 PM MERCERIZING RANGE CONTROLLER EXAMINATION: CORONARY CT ANGIOGRAM HISTORY: Chest pain/anginal [...] esult * POCT creatinine (08/07/2024 1:16 PM MERCERIZING RANGE CONTROLLER) Creatinine POC 0.9 0.8 - 1.3 mg/dL Blood 08/07/2024 1:16 PM MERCERIZING RANGE CONTROLLER 08/07/2024 1:16 PM MERCERIZING RANGE CONTROLLER us Dwayne Lopez MD LAB POCT ORDERABLES - DEVICE Final Result MARY[facility] Department [place] [address] * TRANSTHORACIC ECHO (TTE) COMPLETE W DOPPLER/CF WO CONTRAST (07/31/2024 9:26 AM MERCERIZING RANGE CONTROLLER) LV EF 65 % CONS SCIMAGE Anatomical Region Laterality Modality Ultrasound 07/31/2024 8:58 AM MERCERIZING RANGE CONTROLLER Narrative 07/31/2024 2:32 PM MERCERIZING RANGE CONTROLLER [facility] Cardiology [address] [facility] [address], [place] [address] [address] [facility] [address], [place] [address] P:[phone] P:[phone] Echocardiographic Report Patient Name: ALFONZO AMAYA A [...] Site: Exam was interpreted at [facility]. Left Ventricle: Normal left ventricular size. Normal [...] 2021). Electronically Signed By: Dwayne Carrasco MD, [facility] 07/31/2024 2:31:13 PM MERCERIZING RANGE CONTROLLER Procedure Note Dwayne Carrasco MD - 07/31/2024 [facility] Cardiology [address] [facility] [address] [address] [address] [facility] [address] [place] [address] P:[phone] P:[phone] Echocardiographic Report Patient Name: ALFONZO AMAYA A [...] 2021). Electronically Signed By: Dwayne Carrasco MD, [facility] 07/31/2024 2:31:13 PM MERCERIZING RANGE CONTROLLER Ana Rosa Broussard MD CV ECHO PROCEDURES Final Result * DEVICE CHECK - REMOTE (07/26/2024 12:30 PM MERCERIZING RANGE CONTROLLER) Anatomical Region Laterality Modality Other Narrative 08/17/2024 12:45 PM MERCERIZING RANGE CONTROLLER Medtronic Lucerne Dual Pacemaker. Dx; CHB. DOI 09/01/2022-[facility]. Chronic leads 10/24/2013. Carelink remote monitoring. Routine AAI<>DDD Pacemaker Remote. Transmission attached. Battery status-3.03V, 11.3 years remaining to JAYCE. Stable lead impedances, pacing and sensing thresholds. Presenting rhythm: AP-VS. AP-100%, SPORTS LEADERSHIP INSTRUCTOR-<0.1 %. No AT/AF episodes recorded. No Ventricular [...] * POCT lipid panel (07/07/2024 10:41 AM MERCERIZING RANGE CONTROLLER) Cholesterol, POC 146 mg/dL HDL, POC 80 mg/dL Triglycerides, POC 64 mg/dL LDL Cholesterol POC 54 mg/dL Chol/HDL Ratio, POC 0.7 Non-HDL Cholesterol, POC 67 mg/dL Cholesterol Total, POC 146 mg/dL Capillary blood 07/07/2024 1 0:41 AM MERCERIZING RANGE CONTROLLER Ana Rosa Broussard MD POINT OF CARE TEST ORDERA BLES Final Result from Last 3 Months Insurance [employer] MEDICARE HMO PPO [employer] MEDICARE HMO PPO Care Teams Wood Heel Finisher Relationship Specialty Start Date End Date Dwayne Lopez MD [address] [place], [place] [id number] PCP - General Emergency Medicine 12/21/18
--- OUTSIDE RECORDS SUMMARY | 2024-09-19 07:08 | XMS_ITS | Continuity of Care Document ---
Author Organization [facility] Address [id number] [place] [address] [place] [address] Phone Care Team Providers Care Remote Sensing Research Scientist Name Role Phone Mitchel Pérez MD, FACS [...] Diagnoses Date Provider Providers Copied on Encounter [facility], [id number] [place] [address] [employer] [address], [place], [place], [id number], [place] tel:[phone] [facility] decreased vision (chief complaint) ASTIGMATISM NOS 1 Beto Grullon. [address] [place] [address], [address], [place], [place], [id number], [place]. tel:[phone] Referring Provider: Gen Sheets OD, [address] [facility], [place], [address]. tel:[phone] Family History Family Member Type Diagnosis Age At Onset No Information Payers Payer name Insurance type Covered republican ID Authoriza tion(s) No Information Social History [...] discussed rec waiting until available. Rec seeing [facility] for CTL fit with larger diameter scleral CTL's OS. Pt may want CTL for OD to assist with balancemonitorletter dictated to Dr. Sheets Related to Astigmatism - to [facility], for CTL Related to Ast igmatism Assessments Type Assessment Date No Information Patient Care Teams Name Effective Dates (start - stop) Status Members No Information
--- OUTSIDE RECORDS SUMMARY | 2024-09-19 07:08 | XMS_ITS | Encounter Summary ---
Author Organization [facility] Address [address] [address] Care Team Providers Care Manager Gift Name Role Phone Papa Mon MD Primary Care Provider [phone] Dwayne Lopez MD Primary Care Provide r Encounter Details Date Type Department Care Team (Late st Contact Info) Description 08/05/2016 Orders Only [facility] ProviderOrlin MD [address] [place] [address] Social History Tobacco Use Types Packs/Day Years Used Date Smoking Tobacco: Former Alcohol Use Standard Drinks/Week Comments No 0 (1 standard drink = 0.6 oz pur e alcohol) Sex and Gender Information Value Date Recorded Sex Assigned at Not on file Legal Sex Male 3:16 AM REPLENISHMENT ANALYST Gender Identity Not on file Sexual Orientation [...] on filedocumented in this encounter Care Teams Manager Gift Relationship Specialty Start Date End Date Papa Mon MD [address] [facility] [place], [place] [id number] PCP - General 11/27/13 12/20/18 Dwayne Lopez MD [address] [place] [address] PCP - General Emergency Medicine 12/21/18 documented as of this encounter
--- OUTSIDE RECORDS SUMMARY | 2024-09-19 07:08 | XMS_ITS | Encounter Summary ---
Author Organization [facility] Address [address] [address] Care Team Providers Care Electrotyper Apprentice Name Role Phone Papa Mon MD Primary Care Provider [phone] Dwayne Lopez MD Primary Care Provide r Encounter Details Date Type Department Care Team (Late st Contact Info) Description 11/04/2016 Orders Only [facility] ProviderOrlin MD [address] [place] [address] Social History Tobacco Use Types Packs/Day Years Used Date Smoking Tobacco: Former Alcohol Use Standard Drinks/Week Comments No 0 (1 standard drink = 0.6 oz pur e alcohol) Sex and Gender Information Value Date Recorded Sex Assigned at Not on file Legal Sex Male 3:16 AM RETURN CLERK Gender Identity Not on file Sexual Orientation [...] on filedocumented in this encounter Care Teams Electrotyper Apprentice Relationship Specialty Start Date End Date Papa Mon MD [address] [facility] [place], [place] [phone] PCP - General 11/27/13 12/20/18 Dwayne Lopez MD [address] [place] [address] PCP - General Emergency Medicine 12/21/18 documented as of this encounter
--- OUTSIDE RECORDS SUMMARY | 2024-09-19 07:08 | XMS_ITS | Clinical Summary ---
Author Organization [facility] Address [facility] [place] [address] Care Team Providers Care Quality Rep Name Role Phone Dwayne Lopez MD Primary [...] Department Care Team Description 08/24/2024 9:30 AM LEATHER POLISHER Office Visit [facility] Cardiology [address] [place] [address] [place] [phone] Deb Lion NP Fatigue, unspecified type (Primary Dx); Nonobstructive atherosclerosis of coronary artery; Status post coronary angiogram; Aneurysm of ascending aorta without rupture; Sinoatrial node dysfunction (HCC); Pacemaker [Z95.0] 08/24/2024 Telephone [place] [address] [place] [phone] Deb Lion NP 08/18/2024 10:30 AM LEATHER POLISHER - 08/18/2024 12:00 PM LEATHER POLISHER Surgery [facility] Cardiac Catheterization Lab [id number] [place] [address] Riley Motley MD LEFT HEART CATHETERIZATION WITH CORONARY ANGIOGRAPHY AND WITH OR WITHOUT LEFT VENTRICULOGRAM [id number] 08/18/2024 7:58 AM LEATHER POLISHER - 08/18/2024 1:12 PM LEATHER POLISHER Hospital Encounter [facility] Cardiac Catheterization Lab [address] [place] [address] Riley Motley MD Abnormal computed tomography angiography (CTA) Discharge Disposition: Discharge to home or self care 08/16/2024 Telephone [facility] Cardiology [address] [place] [address] [address] [place] [phone] Ana Rosa Broussard MD Prior Auth 08/08/2024 Telephone [facility] Cardiology [facility] [address] [place] [phone] Ana Rosa Broussard MD 08/07/2024 12:48 PM LEATHER POLISHER - 08/07/2024 11:59 PM LEATHER POLISHER Hospital Encounter [facility] [address] [place] [address] Atypical chest pain Discharge Disposition: Discharge to home or self care 07/31/2024 9:15 AM LEATHER POLISHER Ancillary Procedure [facility] Cardiology [address] [place] [address] [place] [phone] Nonrheumatic aortic (valve) insufficiency; Aneurysm of ascending aorta without rupture; Pacemaker; Chronic fatigue; Atypical chest pain; Dizziness 07/26/2024 8:45 AM LEATHER POLISHER Ancillary Procedure [facility] Cardiology [address] [facility] [address] [place] [phone] Pacemaker [Z95.0] (Primary Dx); SSS (sick sinus syndrome) (HCC); CHB (complete heart block) (HCC) 07/18/2024 Orders Only [facility] Health Information Management [address] [place] [address] Ana Rosa Broussard MD 07/14/2024 Telephone [facility] Cardiology [address] [place] [address] [address] [place] [phone] Ana Rosa Broussard MD Prior Auth 07/07/2024 10:30 AM LEATHER POLISHER Office Visit [facility] Cardiology [address] [place] [address] [place] [phone] Ana Rosa Broussard MD Nonrheumatic aortic (valve) [...] ANGIOGRAPHY AND WITH OR WITHOUT LEFT VENTRICULOGRAM [id number]; Surgeon: Riley Motley MD; Location: CARDIAC RN CLINICAL; Service: Cardiovascular; Laterality: N/A; CARDIAC CATHETERIZATION 08/18/2024 N/A Procedure: Coronary Flow Velocity (CFR) / Instantaneous Flow Velocity (IFR), 1st Vessel; Surgeon: Riley Motley MD; Location: CARDIAC RN CLINICAL; Service: Cardiovascular; Laterality: N/A; Medical History Medical [...] on file Legal Sex Male 3:16 AM LEATHER POLISHER Gender Identity Not on file Sexual Orientation Not on file Obstetrics History Last Filed Vital Signs Vital Sign Reading Time Taken Comments Blood Pressure 108/66 08/24/2024 9:50 AM LEATHER POLISHER Pulse 85 08/24/2024 9:50 AM LEATHER POLISHER Temperature 36.9 C (98.4 F) 08/18/2024 8:21 AM LEATHER POLISHER Respiratory Rate 18 08/18/2024 8:21 AM LEATHER POLISHER Oxygen Saturation 97% 08/24/2024 9:50 AM LEATHER POLISHER Inhaled Oxygen Concentration - - Weight 68.9 kg (152 lb) 08/24/2024 9:50 AM LEATHER POLISHER Height 177.8 cm (5' 10 ) 08/24/2024 9:50 AM LEATHER POLISHER Body Mass Index 21.81 08/24/2024 9:50 AM LEATHER POLISHER Plan of Treatment Health Maintenance Due Date [...] 08/18/2025 08/18/2024 Medical Devices Implanted Type Area Nut [employer] Device Identifier Shelf Expiration Date Model / Serial / Lot Pacemaker-2013 Implanted:10/24 (Quantity not on file) Pacemaker Chest [employer] [facility] RE[facility] MRI / [id number] / Procedures Procedure Name Priority Date/Time Associated Diagnosis Comments CORONARY FLOW VELOCITY (CFR) / INSTATANEOUS FLOW VELOCITY (IFR), 1ST VESSEL Routine 08/18/2024 10:58 AM LEATHER POLISHER Abnormal computed tomography angiography (CTA) LEFT HEART CATHETERIZATION WITH CORONARY ANGIOGRAPHY AND WITH AND WITHOUT LEFT VENTRICULOGRAM Routine 08/18/2024 10:58 AM LEATHER POLISHER Abnormal computed tomography angiography (CTA) MODERATE SEDATION SAME MD KIDD ADDL 15 MIN [id number] 08/18/2024 10:00 AM LEATHER POLISHER Abnormal computed tomography angiography (CTA) MODERATE SEDATION 08/18/2024 10:00 AM LEATHER POLISHER Abnormal computed tomography angiography (CTA) EGFR Routine 08/18/2024 8:17 AM LEATHER POLISHER BASIC METABOLIC PANEL Routine 08/18/2024 8:17 AM LEATHER POLISHER CBC WITHOUT DIFFERENTIAL Routine 08/18/2024 8:[address] HEART MORPHOLOGY AND CORONARY ARTERIES W CONTRAST Schedule Routine, Read Routine (OP Routine) 08/07/2024 1:37 PM LEATHER POLISHER Atypical chest pain POCT CREATININE - DEVICE Routine 08/07/2024 1:16 PM LEATHER POLISHER TRANSTHORACIC ECHO (TTE) COMPLETE W DOPPLER/CF WO CONTRAST Routine 07/31/2024 9:26 AM LEATHER POLISHER Nonrheumatic aortic (valve) insufficiency Aneurysm of ascending aorta without rupture Pacemaker Chronic fatigue Atypical chest pain Dizziness DEVICE CHECK - REMOTE Routine 07/26/2024 12:30 PM LEATHER POLISHER SSS (sick sinus syndrome) (HCC) CHB (complete heart block) (HCC) SCAN - RADIOLOGY/IMAGING 07/18/2024 POCT LIPID PANEL Routine 07/07/2024 10:41 AM LEATHER POLISHER Hypercholesterole pravin Hypertriglyceride pravin from Last 3 Months Results * LEFT HEART CATHETERIZATION WITH CORONARY ANGIOGRAPHY AND WITH AND WITHOUT LEFT VENTRICULOGRAM, CORONARY FLOW VELOCITY (CFR) / INSTATANEOUS FLOW VELOCITY (IFR), 1ST VESSEL (08/18/2024 10:58 AM LEATHER POLISHER) Anatomical Region Laterality Modality X-Ray Angiograph y Narrative 08/18/2024 11:22 AM LEATHER POLISHER CARDIAC CATHETERIZATION REPORT Alfonzo Amaya IP ENCOUNTER: [id number] Date of Procedure: 08/18/2024 BIRTHDATE: 1950 [employer] OPERATOR: Riley Motley MD REFERRING PHYSICIAN: Dr. [...] patient. Patient was then brought into the laborer syrup machine and was draped and prepped in the [...] Final Result * eGFR (08/18/2024 8:17 AM LEATHER POLISHER) eGFR >90 >=60 mL/min/1. 73 m2 Comment: [...] last reviewed 2021. Blood 08/18/2024 8:17 AM LEATHER POLISHER 08/18/2024 8:30 AM LEATHER POLISHER us Riley Motley MD LAB BLOOD ORDERABLES Final Resul t [facility] [address] Department [place] [address] * CBC without differential (08/18/2024 8:17 AM LEATHER POLISHER) Pathologist [facility] WBC 5.1 3.8 - 9.9 K/cumm Hgb 13.9 13.0 - 17.5 g/dL [facility] Hct 42.5 38.9 - 50.3 % [facility] Plt 201 150 - 400 K/cumm [facility] MPV 11.4 9.1 - 12.3 fL [facility] RBC 4.72 4.30 - 5.80 M/cumm [facility] MCV 90.0 81.3 - 96.4 fL [facility] MCH 29.4 27.1 - 33.3 pg [facility] MCHC 32.7 32.3 - 35.7 g/dL [facility] RDW CV 13.2 11.1 - 14.9 % [facility] RDW SD 43.2 35.7 - 48.1 fL [facility] NRBC abs 0.00 0.00 - 0.01 K/cumm [facility] Blood 08/18/2024 8:17 AM LEATHER POLISHER 08/18/2024 8:30 AM LEATHER POLISHER us Riley Motley MD LAB BLOOD ORDERABLES Final Resul t [facility] [address] Department [place] [address] * (ABNORMAL) Basic metabolic panel (08/18/2024 8:17 AM LEATHER POLISHER) Sodium 141 135 - 145 mmol/L Potassium, pl 4.1 3.3 - 4.9 mmol/L [facility] Chloride 104 97 - 110 mmol/L [facility] CO2 27 22 - 32 mmol/L [facility] Anion gap 10 2 - 15 mmol/L [facility] BUN 14 6 - 25 mg/dL [facility] Creatinine 0.74(L) 0.80 - 1.30 mg/dL [facility] Glucose 97 70 - 199 mg/dL [facility] Comment: Interpretive Data Fasting glucose >/= 126 [...] mg/dL [facility] Blood 08/18/2024 8:17 AM LEATHER POLISHER 08/18/2024 8:30 AM LEATHER POLISHER us Riley Motley MD LAB BLOOD ORDERABLES Final Resul t [facility] [address] Department [place] [address] * CTA Heart and Coronary Arteries W Morphology when Performed (08/07/2024 1:37 PM LEATHER POLISHER) Anatomical Region Laterality Modality Chest N/A Computed Tomogra phy 08/07/2024 2:21 PM LEATHER POLISHER Impressions 08/07/2024 2:52 PM LEATHER POLISHER 1. Three vessel calcified atherosclerosis which may [...] Marina Aldrich M.D. Narrative 08/07/2024 2:52 PM LEATHER POLISHER EXAMINATION: CORONARY CT ANGIOGRAM HISTORY: Chest pain/anginal [...] esult * POCT creatinine (08/07/2024 1:16 PM LEATHER POLISHER) [facility] Creatinine POC 0.9 0.8 - 1.3 mg/dL Blood 08/07/2024 1:16 PM LEATHER POLISHER 08/07/2024 1:16 PM LEATHER POLISHER Dwayne Lopez MD LAB POCT ORDERABLES - DEVICE Final Result [facility] Department of Laboratories [place], [place] [id number] * TRANSTHORACIC ECHO (TTE) COMPLETE W DOPPLER/CF WO CONTRAST (07/31/2024 9:26 AM LEATHER POLISHER) [facility] LV EF 65 % CONS SCIMAGE Anatomical Region Laterality Modality Ultrasound 07/31/2024 8:58 AM LEATHER POLISHER Narrative 07/31/2024 2:32 PM LEATHER POLISHER [facility] Cardiology [address], [place] [address] [address] [facility] [address], [place] [address] P:[phone] P:[phone] Echocardiographic Report Patient Name: ALFONZO AMAYA A [...] FINDINGS: Interpretation Site: Exam was interpreted at [facility]. Left Ventricle: Normal left ventricular [...] 2021). Electronically Signed By: Dwayne Carrasco MD, [facility] 07/31/2024 2:31:13 PM LEATHER POLISHER Procedure Note Dwayne Carrasco MD - 07/31/2024 [facility] Cardiology [address] [facility] [address], [place] [address] [address], [place] [address] P:[phone] P:[phone] Echocardiographic Report Patient Name: ALFONZO AMAYA A [...] FINDINGS: Interpretation Site: Exam was interpreted at [facility]. Left Ventricle: Normal left ventricular [...] 2021). Electronically Signed By: Dway[facility] Carrasco MD, [facility] 07/31/2024 2:31:13 PM LEATHER POLISHER Ana Rosa Broussard MD CV ECHO PROCEDURES Final Result * DEVICE CHECK - REMOTE (07/26/2024 12:30 PM LEATHER POLISHER) Anatomical Region Laterality Modality Other Narrative 08/17/2024 12:45 PM LEATHER POLISHER [employer] [place] Dual Pacemaker. Dx; CHB. DOI 09/01/2022-[facility]. Chronic leads 10/24/2013. [employer] remote monitoring. Routine AAI<>DDD Pacemaker Remote. Transmission attached. Battery status-3.03V, 11.3 years remaining to JAYCE. Stable lead impedances, pacing and sensing thresholds. Presenting rhythm: AP-VS. 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 No AT/AF episodes recorded. No Ventricular high rate episodes noted. Medication: ASA 81 mg, Lipitor. Follow up: office pacemaker 12/13/2024. [employer]link remote f/u 11/01/2024. Radha Dailey RN Ana Rosa Broussard MD CV [facility] Final Result * SCAN - RADIOLOGY/IMAGING (07/18/2024) Anatomical Region Laterality Modality Other Ana Rosa Broussard MD Edited Re sult - Final * POCT lipid panel (07/07/2024 10:41 AM LEATHER POLISHER) Cholesterol, POC 146 mg/dL HDL, POC 80 mg/dL Triglycerides, POC 64 mg/dL LDL Cholesterol POC 54 mg/dL Chol/HDL Ratio, POC 0.7 Non-HDL Cholesterol, POC 67 mg/dL Cholesterol Total, POC 146 mg/dL Capillary blood 07/07/2024 1 0:41 AM LEATHER POLISHER Ana Rosa Broussard MD POINT OF CARE TEST ORDERA BLES Final Result from Last 3 Months Insurance [employer] MED[employer] HMO PPO [employer] MED[employer] HMO PPO Care Teams Quality Rep Relationship Specialty Start Date End Date Dwayne Lopez MD [address] [place] [address] PCP - General Emergency Medicine 12/21/18
[2024-09-19 07:56] LABS: Alanine Aminotransferase 24 U/L (6-50); Albumin Level 4.4 g/dL (3.5-5.1); Alkaline Phosphatase 86 U/L (38-126); Anion Gap 8 mmol/L (4-12); Aspartate Amino Transferase 26 U/L (17-59); Bilirubin,Total 0.7 mg/dL (0.2-1.3); Blood Urea Nitrogen 18 mg/dL (9-20); Calcium 9.5 mg/dL (8.4-10.2); Carbon Dioxide 31 mmol/L (22-30); Chloride 101 mmol/L (98-107); Cholesterol 137 mg/dL (0-200); Estimated Glomerular Filt Rate > 60; Glucose 101 mg/dL (65-110); HDL Direct 70 mg/dL; Potassium 4.1 mmol/L (3.4-5.0); Sodium 140 mmol/L (137-145); Triglycerides 52 mg/dL (<150)
[2024-09-19 08:07] LABS: LDL Cholesterol Direct 49 mg/dL
[2024-09-19 08:27] LABS: Prostate Specific Antigen 0.6 ng/mL (< OR = 4.0)
[2024-09-19 09:34] LABS: Vitamin D 25 Hydroxy 49.7 ng/mL
== END 2024-09-19 07:06 | disposition home or self-care (01) ==
PROVIDERS: PCP Emergency Medicine; Visit Provider Emergency Medicine
DX: E78.5 Hyperlipidemia, unspecified (principal); E55.9 Vitamin D deficiency, unspecified; Z12.5 Encounter for screening for malignant neoplasm of prostate
CPT/HCPCS: 36415; 80053; 80061; 82306; 84153; G0103

== ENCOUNTER 2025-03-12 07:03 | Outpatient (CLI) | payer MEDICARE, SELFPAY ==
[2025-03-12 08:00] LABS: Alanine Aminotransferase 35 U/L (6-50); Albumin Level 4.5 g/dL (3.5-5.1); Alkaline Phosphatase 97 U/L (38-126); Anion Gap 7 mmol/L (4-12); Aspartate Amino Transferase 37 U/L (17-59); Bilirubin,Total 0.6 mg/dL (0.2-1.3); Blood Urea Nitrogen 13 mg/dL (9-20); Calcium 9.3 mg/dL (8.4-10.2); Carbon Dioxide 30 mmol/L (22-30); Chloride 101 mmol/L (98-107); Estimated Glomerular Filt Rate > 60; Glucose 97 mg/dL (65-110); Potassium 4.2 mmol/L (3.4-5.0); Sodium 138 mmol/L (137-145); Total Protein 7.5 g/dL (6.3-8.2)
== END 2025-03-12 07:04 | disposition home or self-care (01) ==
PROVIDERS: PCP Emergency Medicine; Visit Provider Emergency Medicine
DX: E78.5 Hyperlipidemia, unspecified (principal); E55.9 Vitamin D deficiency, unspecified
CPT/HCPCS: 36415; 80053; 82306